=== PATIENT | female | born 1965 | race Caucasian/White ===

== ENCOUNTER 2023-05-12 13:48 | Outpatient (CLI) | payer BC, SELFPAY | END 2023-05-12 13:49 | disposition home or self-care (01) | LOC: NFLDREF 13:49 | PROVIDERS: PCP Family Medicine; Visit Provider Family Medicine | DX: Z00.00 Encounter for general adult medical examination without abnormal findings (principal); I10 Essential (primary) hypertension; E78.5 Hyperlipidemia, unspecified | CPT/HCPCS: 80053 ==

== ENCOUNTER 2023-06-30 11:30 | Outpatient (CLI) | payer BC, SELFPAY | END 2023-06-30 11:31 | disposition home or self-care (01) | PROVIDERS: PCP Family Medicine; Visit Provider Family Medicine | DX: E01.0 Iodine-deficiency related diffuse (endemic) goiter (principal); R00.0 Tachycardia, unspecified; I10 Essential (primary) hypertension; E78.5 Hyperlipidemia, unspecified | CPT/HCPCS: 84439; 84443; 84481 ==

== ENCOUNTER 2023-07-09 10:36 | Outpatient (CLI) | payer BC, SELFPAY ==
--- NOTE | 2023-07-09 11:00 | CRLHL7_ITS ---
For Patients: As a result of the Cures Act, medical imaging exams and procedure reports are released immediately into your electronic medical record. You may view this report before your referring provider. If you have questions, please contact your health care provider. INDICATION: Iodine deficiency RELATED DIFFUSE (ENDEMIC) GOITER COMPARISON: CT chest 05/30/2019 TECHNIQUE: Rm scale and color Doppler images were acquired of the thyroid gland. FINDINGS: The thyroid gland demonstrates diffusely heterogeneous echogenicity and has a lobular outer contour. The right lobe measures 5.0 x 2.4 x 2.6 cm and the left lobe measures 5.4 x 1.9 x 2.0 cm in size. The isthmus measures 1 millimeter. Solid and cystic slightly hypoechoic nodule right thyroid lobe measures 2.1 x 2.4 x 3.2 cm, TR 3. Solid and cystic slightly hypoechoic nodule left thyroid lobe measures 1.1 x 1.5 x 1.8 cm, TR 3. Solid and cystic nodule left thyroid lobe also present measuring 6 x 8 x 9 millimeters, TR 3. The color Doppler images demonstrate normal vascularity. There is no evidence of cervical lymphadenopathy or parathyroid mass. IMPRESSION: 3.2 cm TR 3 right thyroid lobe nodule, FNA recommended. Dictated by Alpesh Cutler MD @ 07/09/2023 11:54:57 AM (Electronically Signed)
== END 2023-07-09 10:37 | disposition home or self-care (01) ==
LOC: US 10:37
PROVIDERS: PCP Family Medicine; Visit Provider Family Medicine
DX: E01.0 Iodine-deficiency related diffuse (endemic) goiter (principal); E04.1 Nontoxic single thyroid nodule
CPT/HCPCS: 76536

== ENCOUNTER 2023-08-03 10:49 | Outpatient (CLI) | payer BC, SELFPAY ==
--- NOTE | 2023-08-03 11:15 | CRLHL7_ITS ---
For Patients: As a result of the Cures Act, medical imaging exams and procedure reports are released immediately into your electronic medical record. You may view this report before your referring provider. If you have questions, please contact your health care provider. INDICATION : Right thyroid nodule. TECHNIQUE : Ultrasound fine needle aspiration of thyroid nodule. Comparison : 07/09/2023 FINDINGS : PROCEDURE: After the informed consent and time-out, multiple fine needle aspirations were obtained from the thyroid nodule. Fine needle performed. 25 gauge needles were used. Lidocaine was used for local anesthesia. The preliminary cytology was adequate for interpretation. Real-time imaging was used for guidance and needle placement. Post imaging ultrasound demonstrates no immediate complication. IMPRESSION : Successful fine needle aspiration of right thyroid nodule. Dictated by Alpesh Cutler MD @ 08/03/2023 12:19:09 PM (Electronically Signed)
== END 2023-08-03 10:50 | disposition home or self-care (01) ==
LOC: US 10:50
PROVIDERS: PCP Family Medicine; Visit Provider Family Medicine
DX: E04.1 Nontoxic single thyroid nodule (principal); E05.90 Thyrotoxicosis, unspecified without thyrotoxic crisis or storm
CPT/HCPCS: 10005; 88173

== ENCOUNTER 2023-08-13 13:34 | Outpatient (CLI) | payer BC, SELFPAY ==
--- NOTE | 2023-08-13 14:00 | CRLHL7_ITS ---
For Patients: As a result of the Century Cures Act, medical imaging exams and procedure reports are released immediately into your electronic medical record. You may view this report before your referring provider. If you have questions, please contact your health care provider. INDICATION: Nontoxic single thyroid nodule. TECHNIQUE: 227 microcuries Iodine 123 administered orally on August 12, 2023. Uptake and scan performed August 13, 2023. FINDINGS: Symmetric uptake within both thyroid lobes. No hot or cold thyroid lobe nodules. 24 hour thyroid uptake is elevated at 62.5 percent. IMPRESSION: 1. Symmetric uptake within both thyroid lobes. No hot or cold thyroid lobe nodules. 2. Elevated 24 hour thyroid uptake of 62.5 percent. Dictated by Dakota Lindsey MD @ 08/13/2023 5:19:28 PM (Electronically Signed)
== END 2023-08-13 13:35 | disposition home or self-care (01) ==
LOC: NM 13:35
PROVIDERS: PCP Family Medicine; Visit Provider Family Medicine
DX: E04.1 Nontoxic single thyroid nodule (principal); E05.90 Thyrotoxicosis, unspecified without thyrotoxic crisis or storm
CPT/HCPCS: 78014; A9509

== ENCOUNTER 2023-10-01 07:21 | Outpatient (CLI) | payer BC, SELFPAY ==
--- NOTE | 2023-10-01 07:15 | CRLHL7_ITS ---
For Patients: As a result of the Century Cures Act, medical imaging exams and procedure reports are released immediately into your electronic medical record. You may view this report before your referring provider. If you have questions, please contact your health care provider. INDICATION: spider nevus of skin COMPARISON: none TECHNIQUE: Real time pierre scale imaging and color Doppler analysis was performed of the right upper quadrant. FINDINGS: Intrahepatic biliary duct dilation is present. The liver measures 16.2 cm. There is a normal appearance of the hepatic IVC and proximal abdominal aorta. There is no evidence of ascites. The gallbladder is absent. The common bile duct is of normal size and measures 21 mm in diameter at the level of the koffi hepatis. Hypoechoic pancreatic head mass is present measuring 4.7 x 2.3 x 2.1 cm. There is no evidence of a stone or hydronephrosis within the right kidney. The right kidney measures 11.2 cm in length. IMPRESSION: 4.7 cm pancreatic head mass with intrahepatic and extrahepatic biliary duct dilation. Dedicated CT recommended for further evaluation. Dictated by Alpesh Cutler MD @ 10/01/2023 10:14:44 AM (Electronically Signed)
== END 2023-10-01 07:22 | disposition home or self-care (01) ==
LOC: US 07:21
PROVIDERS: PCP Family Medicine; Visit Provider Internal Medicine Endocrinology, Diabetes & Metabolism
DX: I78.1 Nevus, non-neoplastic (principal); K86.9 Disease of pancreas, unspecified
CPT/HCPCS: 76705

== ENCOUNTER 2024-01-12 14:25 | Outpatient (REF) | payer BC, SELFPAY ==
[2024-01-12 15:12] LABS: Alkaline Phosphatase* 137 U/L (40-150)
[2024-01-12 19:08] LABS: Free T4 Free Thyroxine* 0.68 ng/dL (0.70-1.85)
[2024-01-14 15:57] LABS: Thyroglobulin Antibody <0.9 IU/mL (0.0-4.0)
[2024-01-15 03:40] LABS: Free T3 2.5 pg/mL (2.5-4.3)
== END 2024-01-12 14:26 | disposition home or self-care (01) ==
LOC: NPINS 14:25
PROVIDERS: PCP Family Medicine; Visit Provider Internal Medicine Endocrinology, Diabetes & Metabolism
DX: E05.90 Thyrotoxicosis, unspecified without thyrotoxic crisis or storm (principal)
CPT/HCPCS: 84075; 84439; 84481; 86376; 86800

== ENCOUNTER 2024-05-13 07:44 | Outpatient (CLI) | payer OTHER, SELFPAY ==
--- OUTSIDE RECORDS SUMMARY | 2024-05-16 14:27 | XMS_ITS | Clinical Summary ---
Author Organization [facility] Address [place], [place] [address] Care Team Providers Care Tin Cutter Name Role Phone Pcp, No Primary Care Provider Unavailabl e Allergies Active Allergy Reactions Criticality Noted Date Comments Cats (Fur, Dander, Saliva) Respiratory Distress 08/17/2007 Canine Protein Containing Products Respiratory Distress 08/17/2007 Lisinopril Cough 02/11/2010 Mold Extracts Wheezing 02/27/2010 Medications Medication Sig Dispensed Refills Start Date End Date Status albuterol (PROVENTIL) 0.083 % neb solution Inhale 3 mL via a nebulizer every 4 hours if needed (shortness of breath or wheezing). 0 03/14/2019 Active acetaminophen (TYLENOL) 325 mg tablet Take 2 tablets by mouth every 4 hours if needed (for discomfort or fever. Call if temp greater than 101 F (38.3 C).). Max acetaminophen dose: 4000mg in 24 hrs. 0 03/14/2019 Active Melatonin 5 mg tabIndications:Absc ess of lower lobe of right lung with pneumonia (HC) Take 1 tablet by mouth at bedtime. 30 tablet 03/14/2019 Active oxyCODONE (ROXICODONE) 5 mg immediate release tabletIndications:A bscess of lower lobe of right lung with pneumonia (HC) Take 1-3 tablets by mouth every 6 hours as needed for pain. 30 tablet 03/14/2019 Active naproxen (ALEVE) 220 mg tablet Take 2 tablets by mouth every 12 hours if needed for Pain. 0 03/14/2019 Active albuterol HFA 90 mcg/actuation inhalerIndications: Bronchiolitis Inhale 2 Puffs by mouth 4 times daily if needed. 1 Inhaler 1 05/30/2019 Active albuterol-ipratropi um (DUONEB) (2.5-0.5 mg) in 3 mL NEBULIZATION solutionIndications :Bronchiolitis Inhale 3 mL via a nebulizer every 4 hours if needed. 1 box 05/30/2019 Active Active Problems Problem Noted Date Diagnosed Date Abscess of lower lobe of right lung with pneumon ia 03/13/2019 Cavitary lesion of lung 03/10/2019 Thyroid nodule 03/10/2019 HTN (hypertension) 03/10/2019 Asthma 03/10/2019 Seasonal allergies 03/09/2019 Insurance coverage problems 10/12/2018 Tobacco dependence 10/11/2018 Severe persistent asthma with acute exacerbation 10/11/2018 Acute respiratory failure with hypoxia 8 Patellofemoral arthralgia of left knee 4 Lumbosacral radiculopathy at S1 10/06/2013 Pain medication agreement 05/19/2012 Overview: Prescriber: Panfilo Gu MD Secondary Dr. Greyson Rizzo, [place] to fill at same amount/dose/frequency in my absence. Controlled substance agreement: 04/15/12 CLIENT RELATION SPECIALIST query on 04/10/16 was acceptable. Last UDS on 09/10/15 L5-S1 disk herniation with DDD 06/26/2011 Hyperlipidemia 03/22/2010 GERD (gastroesophageal reflux disease) 0 Arteriosclerotic heart disease (ASHD) 02/28/2010 Overview: - 02/27/10 Cor angio: 90% mid LAD; s/p FRANCISCO x 1, EF 60% by LV gram, EDP 26 mmHg HTN (hypertension) 02/27/2010 Asthma 02/27/2010 Obesity, unspecified 02/27/2010 Tobacco abuse, in remission 02/27/2010 Overview: Quit 2years ago. 1PPD x 16yrs S/P cholecystectomy 02/27/2010 Stress 02/27/2010 Overview: dx with cancer Unstable angina 02/27/2010 Resolved Problems Problem Noted Date Diagnosed Date Resolved Date HTN (hypertension) 02/11/2010 1 Immunizations Name Administration Dates Next Due Influenza, IIV3 (Age >=3 years) 07/27/2013,08/06 Influenza, IIV4 10/12/2018,07/25/2014 Pneumococcal Poly,23-Valent (Pneumovax) 10/12/20 18 Tdap 11/23/2010 Family History Medical History Relation Name Comments Cancer-breast Mother Thyroid cancer Sister Graves' disease Son Relation Name Status Comments Mother Sister Son Social History Tobacco Use Types Packs/Day Years Used Date Smoking Tobacco: Every Day Cigarettes Last attempted to quit: 10/26/2001 Smokeless Tobacco: Never Tobacco Cessation:Ready to Q uit: Yes; Counseling Given: Yes Comments:3 cigarettes a day Alcohol Use Standard Drinks/Week Comments Yes 0 (1 standard drink = 0.6 oz pur e alcohol) occ. Sex and Gender Information Value Date Recorded Sex Assigned at Not on file Gender Identity Not on file Sexual Orientation Not on file Obstetrics History Last Filed Vital Signs Vital Sign Reading Time Taken Comments Blood Pressure 154/95 12/15/2020 2:40 PM EYEGLASS CUTTER Pulse 116 12/15/2020 2:40 PM EYEGLASS CUTTER Temperature 37 ??C (98.6 ??F) 12/15/2020 2:40 PM EYEGLASS CUTTER Respiratory Rate 16 12/15/2020 2:40 PM EYEGLASS CUTTER Oxygen Saturation 97% 12/15/2020 2:40 PM EYEGLASS CUTTER Inhaled Oxygen Concentration - - Weight 90.7 kg (200 lb) 12/15/2020 2:40 PM EYEGLASS CUTTER Height 170.2 cm (5' 7) 12/15/2020 2:40 PM EYEGLASS CUTTER Body Mass Index 31.32 12/15/2020 2:40 PM EYEGLASS CUTTER Plan of Treatment Health Maintenance Due Date Last Done Comments Hepatitis C screening for age 18-79 1984 Pap test for age 21-65 1987 Colonoscopy through age 75 2011 Mammogram for age 45-75 2011 Zoster (shingles) series for age 50+ (1 of 2) 2016 Depression screening for age 12+ 09/10/2017 09/10/2016, 09/10/2016 BMI (ht and wt on same day) for age 18+ 12/08/2017 12/08/2016, 06/26/2016, 12/27/2015 Lipids for age 45-75 07/07/2019 07/07/2014, 07/27/2013, 11/04/2012, Additional history exists Tetanus booster 03/12/2021 03/12/2011 (Comp leted outside of [facility]), 11/23/2010 COVID-19 vaccine series ( season) 2023 09/11/2021, 12/20/2020, 11/22/2020 Influenza for age 50-64 06/26/2024 10/12/20 18, 07/25/2014, 07/27/2013, Additional history exists Tdap Completed 11/23/2010 Pneumococcal series for age 6-64 Aged Out 10/12/2018 No longer eligible based on patient's age to complete this topic HIV for age 15-65 Completed 03/09/2019 Goals Goal Patient Goal Type Associated Problems Recent Progress Patient-Stated? Author BLOOD PRESSURE - MAINTAINS BP less than 140/90 Blood Pressure Panfilo Gilbert MD Procedures Procedure Name Priority Date/Time Associated Diagnosis Comments ANTI HIV 1/2 TRINI 03/09/2019 7:57 AM CDT LIPID PANEL W REFLEX MEASURED LDL Routine 07/07/2014 10:36 AM CDT Hyperlipidemia from Last 3 Months or Most Recently Relevant to Health Maintenance Results * HIV 1&2 TODAY (03/09/2019 7:57 AM CDT) Pathologist [facility] HIV-1/HIV-2 ANTIBODY Non-Reacti ve Non-Reacti ve 03/11/2019 6:48 AM CDT [facility] Comment:HIV-1 p24 and HIV-1/ HIV-2 Ab not detected. Blood BLOOD SPECIMEN / Unknown Venipuncture / Unknown 03/09/2019 7:57 AM CDT 03/09/2019 8:02 AM CDT Savannah Lara MD SEND OUTS [facility] [address] [place] [address], [place] * (ABNORMAL) LIPID PANEL W REFLEX MEASURED LDL (07/07/2014 10:36 AM CDT) Pathologist [facility] CHOLESTEROL,TOTAL 170 100 - 199 mg/dL 07/07/2014 11:19 AM CDT [facility] TRIGLYCERIDES 113 <150 mg/dL 07/07/2014 11:19 AM CDT [facility] HDL CHOLESTEROL 35(L) >40 mg/dL 4 11:19 AM CDT [facility] NON-HDL CHOLESTEROL 135 <145 mg/dl 07/07/2014 11:19 AM CDT [facility] CHOL/HDL RATIO 4.86(H) <4.50 07/07/2014 11:19 AM CDT [facility] LDL CHOLESTEROL 112 <=130 mg/dL 07/07/2014 11:19 AM CDT [facility] PATIENT STATUS NON-FASTI NG 07/07/2014 11:19 AM CDT [facility] Blood specimen (specimen) BLOOD SPECIMEN / Unknown Venipuncture / Unknown 07/07/2014 10:36 AM CDT 07/07/2014 10:36 AM CDT Panfilo Gu MD CHEMISTRY [facility] [address] [place] [address], from Last 3 Months or Most Recently Relevant to Health Maintenance Advance Directives * Full Code (Latest Code Status on File) Date Activated Date Inactivated Comments 03/09/2019 4:55 PM 03/14/2019 8:03 PM * DNR Date Activated Date Inactivated Comments 10/11/2018 1:44 PM 10/12/2018 5:54 PM Question Answer Comments Code Status Discussion: Discussed Care Teams Tin Cutter Relationship Specialty Start Date End Date Pcp, No . PCP - General 07/18/17
== END 2024-05-13 07:45 | disposition home or self-care (01) ==
LOC: NFLDREF 05-16 14:26
PROVIDERS: PCP Family Medicine; Referring Provider Family Medicine; Visit Provider Family Medicine
DX: E78.5 Hyperlipidemia, unspecified (principal); I10 Essential (primary) hypertension
CPT/HCPCS: 80053; 80061

== ENCOUNTER 2024-05-26 06:01 | Outpatient (CLI) | payer OTHER, SELFPAY ==
--- OUTSIDE RECORDS SUMMARY | 2024-05-26 06:04 | XMS_ITS | Clinical Summary ---
Author Organization [facility] Address [place], [place] [address] Care Team Providers Care Escalator Attendant Name Role Phone Pcp, No Primary Care [...] in my absence. Controlled substance agreement: 04/15/12 BIT BENDER query on 04/10/16 was acceptable. Last UDS [...] Date Resolved Date HTN (hypertension) 02/11/2010 1 Encounters Date Type Department Care Team Description 05/16/2024 Lab Requisition [facility] [phone] Milo Maloney MD from Last 3 Months Immunizations Name Administration Dates Next Due Influenza, [...] Comments Blood Pressure 154/95 12/15/2020 2:40 PM PURCHASE PRICE ANALYST Pulse 116 12/15/2020 2:40 PM PURCHASE PRICE ANALYST Temperature 37 ??C (98.6 ??F) 12/15/2020 2:40 PM PURCHASE PRICE ANALYST Respiratory Rate 16 12/15/2020 2:40 PM PURCHASE PRICE ANALYST Oxygen Saturation 97% 12/15/2020 2:40 PM PURCHASE PRICE ANALYST Inhaled Oxygen Concentration - - Weight 90.7 kg (200 lb) 12/15/2020 2:40 PM PURCHASE PRICE ANALYST Height 170.2 cm (5' 7) 12/15/2020 2:40 PM PURCHASE PRICE ANALYST Body Mass Index 31.32 12/15/2020 2:40 PM PURCHASE PRICE ANALYST Plan of Treatment Health Maintenance Due Date Last Done Comments Hepatitis C screening for age 18-79 1984 Colonoscopy through age 75 2011 Mammogram for [...] outside of [facility]), 11/23/2010 COVID-19 vaccine series (2022- season) 2023 09/11/2021, 12/20/2020, 11/22/2020 Influenza for age 50-64 06/26/2024 10/12/20 18, 07/25/2014, 07/27/2013, Additional history exists Pap test for age 21-65 05/16/2027 05/16/2024, 2023 Tdap Completed 11/23/2010 Pneumococcal series for age 6-64 Aged Out 10/12/2018 No longer eligible based on patient's age to complete this topic HIV for age 15-65 Completed 03/09/2019 Goals Goal Patient Goal Type Associated Problems Recent Progress Patient-Stated? Author BLOOD PRESSURE - MAINTAINS BP less than 140/90 Blood Pressure No Panfilo Gu MD Procedures Procedure Name Priority Date/Time Associated Diagnosis Comments LAB TRACKING EVENT Routine 05/16/2024 8: [address] [employer]IO INSTALLER THIN PREP PAP SCREEN IMAGED Routine 05/16/2024 8:45 AM CDT HPV THIN PREP Routine 05/16/2024 8:45 AM CDT ANTI HIV 1/2 TRINI 03/09/2019 7:57 AM CDT LIPID PANEL W REFLEX MEASURED LDL Routine 07/07/2014 10:36 AM CDT Hyperlipidemia from Last 3 Months or Most Recently Relevant to Health Maintenance Results * LAB TRACKING EVENT (05/16/2024 8:45 AM CDT) Other (Other) Client Collect / Unknown 05/16/2024 8:45 AM CDT 05/16/2024 3:38 PM CDT Milo Maloney MD LAB BILL ONLY [facility] [address] [place] [address], * TWO WAY RADIO INSTALLER THIN PREP PAP SCREEN IMAGED (05/16/2024 8:45 AM CDT) Case Report Gynecologic Cytology Report ? Case: [id number] ? Authorizing Provider: ??Milo Maloney MD ?Collected: ? 05/16/2024 0845 ? Ordering Location: ? [facility] ?Received: ?05/17/2024 1045 ? First Screen: ?Abi Tipton ? Specimen: ?TWO WAY RADIO INSTALLER ThinPrep Vial Screening, Cervical ? 05/24/2024 12:59 PM CDT [facility] INTERPRETATION/ RESULT NEGATIVE FOR INTRAEPITHELIAL LESION OR MALIGNANCY (NIL) (none) 05/24/2024 12:59 PM CDT [facility] IMEN ADEQUACY Satisfactory for evaluation No endocervical component seen 05/24/2024 12:59 PM CDT [facility] HPV REQUEST HPV and PAP 05/24/2024 12:59 PM CDT [facility] Date of LMP 05/24/2024 12:59 PM CDT [facility] Comment:UNKNOWN Last Pap Date 05/24/2024 12:59 PM CDT [facility] Comment:UNKNOWN Last Pap Result 12:59 PM CDT [facility] Comment:Unknown Abnormal Pap or Creola Bx in last 5 years No 05/24/2024 12:59 PM CDT [facility] Creola Bx Done Today No 05/24/2024 12:59 PM CDT [facility] Additional Information 05/24/2024 12:59 PM CDT [facility] Comment: Interpreted at [facility] - [address] [place] [id number] Automated Review Successful 05/24/2024 12:59 PM CDT [facility] Comment:Specimen processed s uccessfully by automated rn discharge device, ThinPrep Imaging System, [facility] [employer] [employer] ANCILLARY TESTING TWO WAY RADIO INSTALLER HPV Ordered, Please see separate report 05/24/2024 12:59 PM CDT [facility] Note The pap test is a screening technique, not a diagnostic procedure. It is used primarily to screen for squamous cancers and precursor lesions. Published studies have shown that it is subject to both false negative and false positive results. The pap test should not be used as the sole means to diagnose or exclude pre-malignant and malignant lesions. 05/24/2024 12:59 PM CDT [facility] [employer] [facility] Other (Cervical) 05/16/2024 8:45 AM CDT 05/17/2024 10:45 AM CDT Milo Maloney MD PATHOLOGY/CYTOLOGY [facility] [address] [place] [address], * HPV HIGH RISK (05/16/2024 8:45 AM CDT) TYPE 16 Negative Negative 05/20/2024 11:06 AM CDT [facility] [employer] [facility] TYPE 18 Negative Negative 05/20/2024 11:06 AM CDT [facility] OTHER HIGH RISK TYPES Negative Negative 05/20/2024 11:06 AM CDT [facility] Other (Cervical) 05/16/2024 8:45 AM CDT 05/17/2024 10:45 AM CDT Narrative [facility] - 05/20/2024 11:06 AM CDT HPV types 16, 18, 31, 33, 35, 39, 45, 51, 52, 56, 58, 59, 66 and 68 DNA were undetectable or below the pre-set threshold. Methodology: Ruma Kaitlin 4800 HPV Test Milo Maloney MD MICROBIOLOGY [facility] [address] [place] [address], * HIV 1&2 TODAY (03/09/2019 7:57 AM CDT) HIV-1/HIV-2 ANTIBODY Non-Reacti ve Non-Reacti ve 03/11/2019 6:48 AM CDT [facility] Comment:HIV-1 p24 and HIV-1/ HIV-2 Ab not detected. Blood BLOOD SPECIMEN / Unknown Venipuncture / Unknown 03/09/2019 7:57 AM CDT 03/09/2019 8:02 AM CDT Savannah Lara MD SEND OUTS [facility] [address] [place] [address], [place] * (ABNORMAL) LIPID PANEL W REFLEX MEASURED LDL (07/07/2014 10:36 AM CDT) CHOLESTEROL,TOTAL 170 100 - 199 mg/dL 07/07/2014 11:19 AM CDT [facility] TRIGLYCERIDES 113 <150 mg/dL 07/07/2014 11:19 AM CDT [facility] HDL CHOLESTEROL 35(L) >40 mg/dL 4 11:19 AM CDT [facility] NON-HDL CHOLESTEROL 135 <145 mg/dl 07/07/2014 11:19 AM CDT [facility] CHOL/HDL RATIO 4.86(H) <4.50 07/07/2014 11:19 AM CDT [facility] LDL CHOLESTEROL 112 <=130 mg/dL 07/07/2014 11:19 AM CDT [facility] PATIENT STATUS NON-FASTI NG 07/07/2014 11:19 AM CDT [facility] Blood specimen (specimen) BLOOD SPECIMEN / Unknown Venipuncture / Unknown 07/07/2014 10:36 AM CDT 07/07/2014 10:36 AM CDT Panfilo Gu MD CHEMISTRY [address] [address], from Last 3 Months or Most Recently Relevant to Health Maintenance Advance Directives * Full Code (Latest Code Status on File) Date Activated Date Inactivated Comments 03/09/2019 4:55 PM 03/14/2019 8:03 PM * DNR Date Activated Date Inactivated Comments 10/11/2018 1:44 PM 10/12/2018 5:54 PM Question Answer Comments Code Status Discussion: Discussed Care Teams Escalator Attendant Relationship Specialty Start Date End Date Pcp, No . PCP - General 07/18/17
== END 2024-05-26 06:02 | disposition home or self-care (01) ==
PROVIDERS: PCP Family Medicine; Visit Provider Surgery
DX: Z53.8 Procedure and treatment not carried out for other reasons (principal)

== ENCOUNTER 2024-06-24 12:50 | Outpatient (CLI) | payer OTHER, SELFPAY ==
--- OUTSIDE RECORDS SUMMARY | 2024-06-24 12:53 | XMS_ITS | Clinical Summary ---
Author Organization [employer] [facility] [employer] Address [place], [place] [address] Care Team Providers Care Cafe Or Restaurant Manager Name Role Phone Pcp, No Primary Care [...] in my absence. Controlled substance agreement: 04/15/12 MEDICAID BILLER query on 04/10/16 was acceptable. Last UDS [...] Department Care Team Description 05/16/2024 Lab Requisition [facility] [phone] Milo Maloney MD from Last 3 Months [...] Comments Blood Pressure 154/95 12/15/2020 2:40 PM PUBLIC HEALTH VETERINARIAN Pulse 116 12/15/2020 2:40 PM PUBLIC HEALTH VETERINARIAN Temperature 37 ??C (98.6 ??F) 12/15/2020 2:40 PM PUBLIC HEALTH VETERINARIAN Respiratory Rate 16 12/15/2020 2:40 PM PUBLIC HEALTH VETERINARIAN Oxygen Saturation 97% 12/15/2020 2:40 PM PUBLIC HEALTH VETERINARIAN Inhaled Oxygen Concentration - - Weight 90.7 kg (200 lb) 12/15/2020 2:40 PM PUBLIC HEALTH VETERINARIAN Height 170.2 cm (5' 7) 12/15/2020 2:40 PM PUBLIC HEALTH VETERINARIAN Body Mass Index 31.32 12/15/2020 2:40 PM PUBLIC HEALTH VETERINARIAN Plan of Treatment Health Maintenance Due Date [...] EVENT Routine 05/16/2024 8: 45 AM CDT RUBBER AND POUNDER THIN PREP PAP SCREEN IMAGED Routine 05/16/2024 [...] [facility] [address] [place] [address], * RUBBER AND POUNDER THIN PREP PAP SCREEN IMAGED (05/16/2024 8:45 AM CDT) Case Report Gynecologic Cytology Report ? Case: [id number] ? Authorizing Provider: ??Milo Maloney MD ?Collected: ? 05/16/2024 0845 ? Ordering Location: ? [facility] ?Received: ?05/17/2024 1045 ? First Screen: ?Abi Tipton ? Specimen: ?RUBBER AND POUNDER ThinPrep Vial Screening, Cervical ? 05/24/2024 12:59 PM CDT [facility]-C ENTRAL LABORATORY INTERPRETATION/ RESULT NEGATIVE FOR INTRAEPITHELIAL LESION OR MALIGNANCY (NIL) (none) 05/24/2024 12:59 PM CDT [facility]-C ENTRAL LABORATORY IMEN ADEQUACY Satisfactory for evaluation No endocervical component seen 05/24/2024 12:59 PM CDT [facility] ENTRAL LABORATORY HPV REQUEST HPV and PAP 05/24/2024 12:59 PM CDT [facility]-C ENTRAL LABORATORY Date of LMP 05/24/2024 12:59 PM CDT [facility] Julep [facility] ENTRAL LABORATORY Comment:UNKNOWN Last Pap Date 05/24/2024 12:59 PM CDT [facility] EN[facility] LABOR[facility] Comment:UNKNOWN Last Pap Result 12:59 PM CDT [facility] ENTR[facility] LABORATORY Comment:Unknown Abnormal Pap or [place] Bx in last 5 years No 05/24/2024 12:59 PM CDT [facility] LABORAT[facility] [place] Bx Done Today No 05/24/2024 12:59 PM CDT [facility] ENTRTN LABORATORY Additional Information 05/24/2024 12:59 PM CDT [facility] ENTRAL LABORATORY Comment: Interpreted at [facility] - [address] [place] [id number] Automated Review Successful 05/24/2024 12:59 PM CDT [facility] ENTRTN LABORATORY Comment:Specimen processed s uccessfully by automated field tax auditor device, ThinPrep Imaging System, [employer] ANCILLARY TESTING RUBBER AND POUNDER HPV Ordered, Please see separate report 05/24/2024 12:59 PM CDT [facility]OR[facility] Note The pap test is a [...] and malignant lesions. 05/24/2024 12:59 PM CDT [facility] Julep [facility] LABORATORY Other (Cervical) 05/16/2024 8:45 AM CDT 05/17/2024 10:45 AM CDT Milo Maloney MD PATHOLOGY/CYTOLOGY [facility] [address] [place] [address], * HPV HIGH RISK (05/16/2024 8:45 AM CDT) TYPE 16 Negative Negative 05/20/2024 11:06 AM CDT [facility] TYPE 18 Negative Negative 05/20/2024 11:06 AM CDT [facility] TRAL LABORATORY OTHER HIGH RISK TYPES Negative Negative 05/20/2024 11:06 AM CDT [facility] TRAL LABORATORY Other (Cervical) 05/16/2024 8:45 AM CDT 05/17/2024 10:45 AM CDT Narrative [facility] LABORATORY - 05/20/2024 11:06 AM CDT HPV types 16, 18, 31, 33, 35, 39, 45, 51, 52, 56, 58, 59, 66 and 68 DNA were undetectable or below the pre-set threshold. Methodology: Ruma Kaitlin 4800 HPV Test Milo Maloney MD MICROBIOLOGY [facility] [address] [place] [address], * HIV 1&2 TODAY (03/09/2019 7:57 AM CDT) HIV-1/HIV-2 ANTIBODY Non-Reacti ve Non-Reacti ve 03/11/2019 6:48 AM CDT [facility] TRAL LABORATORY Comment:HIV-1 p24 and HIV-1/ HIV-2 Ab not detected. Blood BLOOD SPECIMEN / Unknown Venipuncture / Unknown 03/09/2019 7:57 AM CDT 03/09/2019 8:02 AM CDT Savannah Lara MD SEND OUTS [facility] [address] [place] [address], [place] * (ABNORMAL) LIPID PANEL W REFLEX MEASURED LDL (07/07/2014 10:36 AM CDT) CHOLESTEROL,TOTAL 170 100 - 199 mg/dL 07/07/2014 11:19 AM CDT [facility] TRIGLYCERIDES 113 <150 mg/dL 07/07/2014 11:19 AM CDT [facility] HDL CHOLESTEROL 35(L) >40 mg/dL 4 11:19 AM CDT [facility] NON-HDL CHOLESTEROL 135 <145 mg/dl 07/07/2014 11:19 AM CDT [facility] CHOL/HDL RATIO 4.86(H) <4.50 07/07/2014 11:19 AM CDT [facility] LDL CHOLESTEROL 112 <=130 mg/dL 07/07/2014 11:19 AM CDT [facility] PATIENT STATUS NON-FASTI NG 07/07/2014 11:19 AM CDT [facility] Blood specimen (specimen) BLOOD SPECIMEN / Unknown Venipuncture / Unknown 07/07/2014 10:36 AM CDT 07/07/2014 10:36 AM CDT Panfilo Gu MD CHEMISTRY [address] [address], from Last 3 Months or Most Recently Relevant to Health Maintenance Advance Directives * Full Code (Latest Code Status on File) Date Activated Date Inactivated Comments 03/09/2019 4:55 PM 03/14/2019 8:03 PM * DNR Date Activated Date Inactivated Comments 10/11/2018 1:44 PM 10/12/2018 5:54 PM Question Answer Comments Code Status Discussion: Discussed Care Teams Cafe Or Restaurant Manager Relationship Specialty Start Date End Date Pcp, No . PCP - General 07/18/17
[2024-06-24 13:40] LABS: Alkaline Phosphatase* 96 U/L (40-150)
[2024-06-24 13:57] LABS: Free T4 Free Thyroxine* 2.19 ng/dL (0.70-1.85)
[2024-06-24 14:15] LABS: Thyroid Stimulating Hormone* < 0.015 uIU/mL (0.270-4.20)
[2024-06-26 05:53] LABS: Free T3 5.6 pg/mL (2.5-4.3)
== END 2024-06-24 12:51 | disposition home or self-care (01) ==
LOC: LAB 12:51
PROVIDERS: PCP Family Medicine; Visit Provider Internal Medicine Endocrinology, Diabetes & Metabolism
DX: E06.3 Autoimmune thyroiditis (principal); E05.00 Thyrotoxicosis with diffuse goiter without thyrotoxic crisis or storm; E05.90 Thyrotoxicosis, unspecified without thyrotoxic crisis or storm
CPT/HCPCS: 36415; 84075; 84439; 84443; 84481

== ENCOUNTER 2024-07-21 08:20 | Outpatient (CLI) | payer OTHER, SELFPAY ==
--- NOTE | 2024-07-21 08:15 | CRLHL7_ITS ---
For Patients: As a result of the Century Cures Act, medical imaging exams and procedure reports are released immediately into your electronic medical record. You may view this report before your referring provider. If you have questions, please contact your health care provider. BILATERAL DIGITAL SCREENING MAMMOGRAM WITH COMPUTER-AIDED DETECTION AND TOMOSYNTHESIS CLINICAL HISTORY: Routine screening exam. COMPARISON: None. TECHNIQUE: Digital mammogram in CC and MLO projections including computer-aided detection (CAD). Tomosynthesis was used in this interpretation. BREAST COMPOSITION: There are scattered areas of fibroglandular density. FINDINGS: RIGHT Breast: Architectural distortion upper outer quadrant with associated microcalcifications 5 cm from the nipple. LEFT Breast: No suspicious findings. IMPRESSION: RIGHT breast asymmetry/mass. RECOMMENDATIONS: Additional mammographic views of the RIGHT breast including 3D spot compression CC/MLO. RIGHT breast ultrasound may also be required. BI-RADS Category 0: Incomplete: Need Additional Imaging Evaluation and/or Prior Mammograms for Comparison [facility] will contact the patient for follow-up. A lay language report of this examination will be provided to the patient. Dictated by Alpesh Cutler MD @ 07/29/2024 9:30:45 AM jj/Dictated by: Alpesh Cutler MD @ 07/29/2024 9:30:00 AM (Electronically Signed)
--- OUTSIDE RECORDS SUMMARY | 2024-07-21 08:23 | XMS_ITS | Clinical Summary ---
Author Organization [employer] [facility] [employer] Address [place], [place] [address] Care Team Providers Care Finishing Machine Operator Name Role Phone Pcp, No Primary Care [...] at S1 10/06/2013 Pain medication agreement 05/19/2012 Overview (01/08/2017): Prescriber: Panfilo Gu MD Secondary Sherwin Sharma to fill at same amount/dose/frequency in my absence. Controlled substance agreement: 04/15/12 INPATIENT CODER query on 04/10/16 was acceptable. 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 1PPD x 16yrs S/P cholecystectomy 02/27/2010 Stress 02/27/2010 Overview (02/27/2010): dx with cancer Unstable angina 02/27/2010 Resolved Problems Problem Noted Date Diagnosed Date Resolved Date HTN (hypertension) 02/11/2010 1 Encounters Date Type Department Care Team Description 05/16/2024 Lab Requisition [facility] [phone] Milo Maloney MD from Last 3 Months [...] Comments Blood Pressure 154/95 12/15/2020 2:40 PM OIL AND GAS PRINCIPAL Pulse 116 12/15/2020 2:40 PM OIL AND GAS PRINCIPAL Temperature 37 ??C (98.6 ??F) 12/15/2020 2:40 PM OIL AND GAS PRINCIPAL Respiratory Rate 16 12/15/2020 2:40 PM OIL AND GAS PRINCIPAL Oxygen Saturation 97% 12/15/2020 2:40 PM OIL AND GAS PRINCIPAL Inhaled Oxygen Concentration - - Weight 90.7 kg (200 lb) 12/15/2020 2:40 PM OIL AND GAS PRINCIPAL Height 170.2 cm (5' 7) 12/15/2020 2:40 PM OIL AND GAS PRINCIPAL Body Mass Index 31.32 12/15/2020 2:40 PM OIL AND GAS PRINCIPAL Plan of Treatment Health Maintenance Due Date [...] [employer]), 11/23/2010 COVID-19 vaccine series ( season) 2024 09/11/2021, 12/20/2020, 11/22/2020 Influenza for age 50-64 [...] EVENT Routine 05/16/2024 8: 45 AM CDT COMMUNICATIONS ELECTRICIAN SUPERVISOR THIN PREP PAP SCREEN IMAGED Routine 05/16/2024 8:45 AM CDT HPV HIGH RISK Routine 05/16/2024 8:45 AM CDT ANTI HIV [...] CDT Milo Maloney MD LAB BILL ONLY [facility] LABORATORY [address] [place] [address], * COMMUNICATIONS ELECTRICIAN SUPERVISOR THIN PREP PAP SCREEN IMAGED (05/16/2024 8:45 AM CDT) Case Report Gynecologic Cytology Report ? Case: [id number] ? Authorizing Provider: ??Milo Maloney MD ?Collected: ? 05/16/2024 0845 ? Ordering Location: ? [facility] ?Received: ?05/17/2024 1045 ? First Screen: ?Abi Tipton ? Specimen: ?COMMUNICATIONS ELECTRICIAN SUPERVISOR ThinPrep Vial Screening, Cervical ? 05/24/2024 12:59 PM CDT [facility] LABORATORY-C ENTRAL LABORATORY INTERPRETATION/ RESULT NEGATIVE FOR INTRAEPITHELIAL LESION OR MALIGNANCY (NIL) (none) 05/24/2024 12:59 PM CDT [facility] IMEN ADEQUACY Satisfactory for evaluation No endocervical component seen 05/24/2024 12:59 PM CDT [facility]-C ENTRAL LABORATORY HPV REQUEST HPV and PAP 05/24/2024 12:59 PM CDT [facility] EN[facility] LABORATORY Date of LMP 05/24/2024 12:59 PM CDT [facility] ENTROR LABORATORY Comment:UNKNOWN Last Pap Date 05/24/2024 12:59 PM CDT [facility] EN[facility] LABORATORY Comment:UNKNOWN Last Pap Result 12:59 PM CDT [facility] LABORATORY Comment:Unknown Abnormal Pap or [place] Bx in last 5 years No 05/24/2024 12:59 PM CDT [facility] [place] Bx Done Today No 05/24/2024 12:59 PM CDT [facility] Additional Information 05/24/2024 12:59 PM CDT [facility] EN[facility]OR LABORATORY Comment: Interpreted at [facility] - [address] [place] [id number] Automated Review Successful 05/24/2024 12:59 PM CDT [facility] Comment:Specimen processed s uccessfully by automated wound care nurse device, ThinPrep Imaging System, [employer] ANCILLARY TESTING COMMUNICATIONS ELECTRICIAN SUPERVISOR HPV Ordered, Please see separate report 05/24/2024 12:59 PM CDT [facility] Note The pap test is a [...] and malignant lesions. 05/24/2024 12:59 PM CDT [facility] Other (Cervical) 05/16/2024 8:45 AM CDT 05/17/2024 10:45 AM CDT Milo Maloney MD PATHOLOGY/CYTOLOGY [facility] [address] [place] [address], * HPV HIGH RISK (05/16/2024 8:45 AM CDT) TYPE 16 Negative Negative 05/20/2024 11:06 AM CDT [facility] TRAL LABORATORY TYPE 18 Negative Negative 05/20/2024 11:06 AM CDT [facility] TRAL LABORATORY OTHER HIGH RISK TYPES Negative Negative 05/20/2024 11:06 AM CDT [facility] Other (Cervical) 05/16/2024 8:45 AM CDT 05/17/2024 10:45 AM CDT Narrative [facility]ORY - 05/20/2024 11:06 AM CDT HPV types 16, 18, 31, 33, 35, 39, 45, 51, 52, 56, 58, 59, 66 and 68 DNA were undetectable or below the pre-set threshold. Methodology: Ruma Kaitlin 4800 HPV Test Milo Maloney MD MICROBIOLOGY [facility] [address] [place] [address], * HIV 1&2 TODAY (03/09/2019 7:57 AM CDT) HIV-1/HIV-2 ANTIBODY Non-Reacti ve Non-Reacti ve 03/11/2019 6:48 AM CDT [facility] Comment:HIV-1 p24 and HIV-1/ HIV-2 Ab not detected. Blood BLOOD SPECIMEN / Unknown Venipuncture / Unknown 03/09/2019 7:57 AM CDT 03/09/2019 8:02 AM CDT Savannah Lara MD SEND OUTS [facility] [address] [place] [address], * (ABNORMAL) LIPID PANEL W REFLEX MEASURED LDL (07/07/2014 10:36 AM CDT) CHOLESTEROL,TOTAL 170 100 - 199 mg/dL 07/07/2014 11:19 AM CDT [facility] TRIGLYCERIDES 113 <150 mg/dL 07/07/2014 11:19 AM CDT [facility] HDL CHOLESTEROL 35(L) >40 mg/dL 4 11:19 AM CDT [facility] NON-HDL CHOLESTEROL 135 <145 mg/dl 07/07/2014 11:19 AM CDT [facility] CHOL/HDL RATIO 4.86(H) <4.50 07/07/2014 11:19 AM CDT [facility] LDL CHOLESTEROL 112 <=130 mg/dL 07/07/2014 11:19 AM CDT [facility] PATIENT STATUS NON-FASTI NG 07/07/2014 11:19 AM CDT [facility] Blood specimen (specimen) BLOOD SPECIMEN / Unknown Venipuncture / Unknown 07/07/2014 10:36 AM CDT 07/07/2014 10:36 AM CDT Panfilo Gu MD CHEMISTRY [address] [address], from Last 3 Months or Most Recently Relevant to Health Maintenance Advance Directives * Full Code (Latest Code Status on File) Date Activated Date Inactivated Comments 03/09/2019 4:55 PM 03/14/2019 8:03 PM * DNR Date Activated Date Inactivated Comments 10/11/2018 1:44 PM 10/12/2018 5:54 PM Question Answer Comments Code Status Discussion: Discussed Care Teams Finishing Machine Operator Relationship Specialty Start Date End Date Pcp, No . PCP - General 07/18/17
== END 2024-07-21 08:21 | disposition home or self-care (01) ==
LOC: MAMMO 08:21
PROVIDERS: PCP Family Medicine; Visit Provider Family Medicine
DX: Z12.31 Encounter for screening mammogram for malignant neoplasm of breast (principal); N63.10 Unspecified lump in the right breast, unspecified quadrant
CPT/HCPCS: 77063; 77067

== ENCOUNTER 2024-08-05 11:38 | Outpatient (CLI) | payer OTHER, SELFPAY ==
--- NOTE | 2024-08-05 11:45 | CRLHL7_ITS ---
For Patients: As a result of the Cures Act, medical imaging exams and procedure reports are released immediately into your electronic medical record. You may view this report before your referring provider. If you have questions, please contact your health care provider. DIGITAL DIAGNOSTIC RIGHT MAMMOGRAM USING TOMOSYNTHESIS AND COMPUTER-AIDED DETECTION RIGHT BREAST ULTRASOUND CLINICAL HISTORY: RIGHT breast mass/asymmetry. COMPARISON: 07/21/2024. TECHNIQUE: Digital RIGHT mammogram in two projections. Tomosynthesis and CAD were used in this interpretation. Real-time ultrasound imaging of RIGHT breast with imaging documentation. Scanning was performed by both the technologist and the radiologist. BREAST COMPOSITION: There are scattered areas of fibroglandular density. FINDINGS: 3D spot compression CC/MLO RIGHT breast mammogram images submitted. Persistent area of architectural distortion with microcalcifications in the upper outer quadrant. Targeted RIGHT breast ultrasound performed. At 11 o`clock 7 cm from the nipple there is an irregular mass with microcalcifications measuring 9 x 6 x 13 millimeters. Mildly prominent RIGHT axillary lymph nodes are present with the cortex measuring up to 4 millimeters. IMPRESSION: Suspicious mass RIGHT breast 11 o`clock 7 cm from the nipple measuring 13 millimeters. Indeterminate RIGHT axillary lymph node with cortex measuring 4.2 millimeters. RECOMMENDATIONS: Ultrasound-guided core needle biopsy of both lesions. Results and recommendations discussed with the patient. BI-RADS Category 4: Suspicious A lay language report of this examination will be provided to the patient. Dictated by Alpesh Cutler MD @ 08/05/2024 12:45:09 PM yue/Dictated by: Alpesh Cutler MD @ 08/05/2024 12:45:00 PM (Electronically Signed)
--- OUTSIDE RECORDS SUMMARY | 2024-08-05 11:47 | XMS_ITS | Clinical Summary ---
Author Organization [employer] [facility] [employer] [facility] Address [place], [place] [address] Care Team Providers Care Rehabilitation Aide Name Role Phone Pcp, No Primary Care [...] in my absence. Controlled substance agreement: 04/15/12 HIGH TENSION TESTER query on 04/10/16 was acceptable. Last UDS [...] Lab Requisition [facility] [phone] Milo Maloney MD from Last 3 Months [...] Comments Blood Pressure 154/95 12/15/2020 2:40 PM SLAT BASKET MAKER HELPER MACHINE Pulse 116 12/15/2020 2:40 PM SLAT BASKET MAKER HELPER MACHINE Temperature 37 ??C (98.6 ??F) 12/15/2020 2:40 PM SLAT BASKET MAKER HELPER MACHINE Respiratory Rate 16 12/15/2020 2:40 PM SLAT BASKET MAKER HELPER MACHINE Oxygen Saturation 97% 12/15/2020 2:40 PM SLAT BASKET MAKER HELPER MACHINE Inhaled Oxygen Concentration - - Weight 90.7 kg (200 lb) 12/15/2020 2:40 PM SLAT BASKET MAKER HELPER MACHINE Height 170.2 cm (5' 7) 12/15/2020 2:40 PM SLAT BASKET MAKER HELPER MACHINE Body Mass Index 31.32 12/15/2020 2:40 PM SLAT BASKET MAKER HELPER MACHINE Plan of Treatment Health Maintenance Due Date [...] EVENT Routine 05/16/2024 8: 45 AM CDT SURGICAL AIDE THIN PREP PAP SCREEN IMAGED Routine 05/16/2024 [...] CDT Milo Maloney MD LAB BILL ONLY [facility] LABORATORY-CENTRAL LABORATORY [address] [place] [address], * SURGICAL AIDE THIN PREP PAP SCREEN IMAGED (05/16/2024 8:45 AM CDT) Case Report Gynecologic Cytology Report ? Case: [id number] ? Authorizing Provider: ??Milo Maloney MD ?Collected: ? 05/16/2024 0845 ? Ordering Location: ? [facility] ?Received: ?05/17/2024 1045 ? First Screen: ?Abi Tipton ? Specimen: ?SURGICAL AIDE ThinPrep Vial Screening, Cervical ? 05/24/2024 12:59 PM CDT [email or web address] LABORATORY-C ENTRAL LABORATORY INTERPRETATION/ RESULT NEGATIVE FOR INTRAEPITHELIAL LESION OR MALIGNANCY (NIL) (none) 05/24/2024 12:59 PM CDT [facility] IMEN ADEQUACY Satisfactory for evaluation No endocervical component seen 05/24/2024 12:59 PM CDT [email or web address] LABORATORY-C ENTRAL LABORATORY HPV REQUEST HPV and PAP 05/24/2024 12:59 PM CDT [facility]IL LABORATORY Date of LMP 05/24/2024 12:59 PM CDT [facility] Comment:UNKNOWN Last Pap Date 05/24/2024 12:59 PM CDT [facility] Comment:UNKNOWN Last Pap Result 12:59 PM CDT [facility] Comment:Unknown Abnormal Pap or [place] Bx in last 5 years No 05/24/2024 12:59 PM CDT [facility]OR[facility] [place] Bx Done Today No 05/24/2024 12:59 PM CDT [facility] Additional Information 05/24/2024 12:59 PM CDT [facility] Comment: Interpreted at [facility] - [address] [place] [id number] Automated Review Successful 05/24/2024 12:59 PM CDT [facility] Comment:Specimen processed s uccessfully by automated community education coordinator device, ThinPrep Imaging System, [employer] ANCILLARY TESTING SURGICAL AIDE HPV Ordered, Please see separate report 05/24/2024 12:59 PM CDT [facility] Note The pap test is [...] and malignant lesions. 05/24/2024 12:59 PM CDT [facility] Other (Cervical) 05/16/2024 8:45 AM CDT 05/17/2024 10:45 AM CDT Milo Maloney MD PATHOLOGY/CYTOLOGY [facility] [address] [place] [address], * HPV HIGH RISK (05/16/2024 8:45 AM CDT) TYPE 16 Negative Negative 05/20/2024 11:06 AM CDT [facility] TRAL LABORATORY TYPE 18 Negative Negative 05/20/2024 11:06 AM CDT [facility] TRAL LABORATORY OTHER HIGH RISK TYPES Negative Negative 05/20/2024 11:06 AM CDT [facility] LABOR[facility] Other (Cervical) 05/16/2024 8:45 AM CDT 05/17/2024 10:45 AM CDT Narrative [facility] LABOR[facility] - 05/20/2024 11:06 AM CDT HPV types 16, 18, 31, 33, 35, 39, 45, 51, 52, 56, 58, 59, 66 and 68 DNA were undetectable or below the pre-set threshold. Methodology: Ruma Kaitlin 4800 HPV Test Milo Maloney MD MICROBIOLOGY [facility] [address] [place] [address], * HIV 1&2 TODAY (03/09/2019 7:57 AM CDT) HIV-1/HIV-2 ANTIBODY Non-Reacti ve Non-Reacti ve 03/11/2019 6:48 AM CDT [facility] Comment:HIV-1 p24 and HIV-1/ HIV-2 Ab not detected. Blood BLOOD SPECIMEN / Unknown Venipuncture / Unknown 03/09/2019 7:57 AM CDT 03/09/2019 8:02 AM CDT Savannah Lara MD SEND OUTS [facility] [address] [place] [address], * (ABNORMAL) LIPID PANEL W REFLEX MEASURED LDL (07/07/2014 10:36 AM CDT) CHOLESTEROL,TOTAL 170 100 - 199 mg/dL 07/07/2014 11:19 AM CDT [facility] TRIGLYCERIDES 113 <150 mg/dL 07/07/2014 11:19 AM CDT [facility] HDL CHOLESTEROL 35(L) >40 mg/dL 4 11:19 AM CDT [facility] NON-HDL CHOLESTEROL 135 <145 mg/dl 07/07/2014 11:19 AM CDT [facility] CHOL/HDL RATIO 4.86(H) <4.50 07/07/2014 11:19 AM CDT [facility] LDL CHOLESTEROL 112 <=130 mg/dL 07/07/2014 11:19 AM CDT [facility] PATIENT STATUS NON-FASTI NG 07/07/2014 11:19 AM CDT [facility] Blood specimen (specimen) BLOOD SPECIMEN / Unknown Venipuncture / Unknown 07/07/2014 10:36 AM CDT 07/07/2014 10:36 AM CDT Panfilo Gu MD CHEMISTRY [address] [address], from Last 3 Months or Most Recently Relevant to Health Maintenance Advance Directives * Full Code (Latest Code Status on File) Date Activated Date Inactivated Comments 03/09/2019 4:55 PM 03/14/2019 8:03 PM * DNR Date Activated Date Inactivated Comments 10/11/2018 1:44 PM 10/12/2018 5:54 PM Question Answer Comments Code Status Discussion: Discussed Care Teams Rehabilitation Aide Relationship Specialty Start Date End Date Pcp, No . PCP - General 07/18/17
--- NOTE | 2024-08-05 12:15 | CRLHL7_ITS ---
For Patients: As a result of the Cures Act, medical imaging exams and procedure reports are released immediately into your electronic medical record. You may view this report before your referring provider. If you have questions, please contact your health care provider. PLEASE SEE DIGITAL DIAGNOSTIC RIGHT MAMMOGRAM PERFORMED SAME DAY CRL:[email or web address] turner/Dictated by: Alpesh Cutler MD @ 08/05/2024 12:54:00 PM (Electronically Signed)
== END 2024-08-05 11:39 | disposition home or self-care (01) ==
LOC: MAMMO 11:39
PROVIDERS: PCP Family Medicine; Visit Provider Family Medicine
DX: N63.10 Unspecified lump in the right breast, unspecified quadrant (principal); R92.8 Other abnormal and inconclusive findings on diagnostic imaging of breast
CPT/HCPCS: 76642; 77065; G0279

== ENCOUNTER 2024-08-26 08:11 | Outpatient (CLI) | payer OTHER, SELFPAY ==
--- OUTSIDE RECORDS SUMMARY | 2024-08-26 08:13 | XMS_ITS | Clinical Summary ---
Author Organization [facility] Address [place], [place] [address] Care Team Providers Care Flat Breakdown Processor Name Role Phone Pcp, No Primary Care [...] in my absence. Controlled substance agreement: 04/15/12 [employer] PROFESSIONAL query on 04/10/16 was acceptable. Last UDS [...] Comments Blood Pressure 154/95 12/15/2020 2:40 PM PICKER TENDER HELPER Pulse 116 12/15/2020 2:40 PM PICKER TENDER HELPER Temperature 37 ??C (98.6 ??F) 12/15/2020 2:40 PM PICKER TENDER HELPER Respiratory Rate 16 12/15/2020 2:40 PM PICKER TENDER HELPER Oxygen Saturation 97% 12/15/2020 2:40 PM PICKER TENDER HELPER Inhaled Oxygen Concentration - - Weight 90.7 kg (200 lb) 12/15/2020 2:40 PM PICKER TENDER HELPER Height 170.2 cm (5' 7) 12/15/2020 2:40 PM PICKER TENDER HELPER Body Mass Index 31.32 12/15/2020 2:40 PM PICKER TENDER HELPER Plan of Treatment Health Maintenance Due Date [...] Procedure Name Priority Date/Time Associated Diagnosis Comments HPV HIGH RISK Routine 05/16/2024 8:45 AM CDT ANTI HIV 1/2 TRINI 03/09/2019 7:57 AM CDT LIPID PANEL W REFLEX MEASURED LDL Routine 07/07/2014 10:36 AM CDT Hyperlipidemia from Last 3 Months or Most Recently Relevant to Health Maintenance Results * HPV HIGH RISK (05/16/2024 8:45 AM CDT) TYPE 16 Negative Negative 05/20/2024 11:06 AM CDT [facility] TYPE 18 Negative Negative 05/20/2024 11:06 AM CDT [facility] OTHER HIGH RISK TYPES Negative Negative 05/20/2024 11:06 AM CDT [facility] Other (Cervical) 05/16/2024 8:45 AM CDT 05/17/2024 10:45 AM CDT Narrative [facility] - 05/20/2024 11:06 AM CDT HPV types 16, 18, 31, 33, 35, 39, 45, 51, 52, 56, 58, 59, 66 and 68 DNA were undetectable or below the pre-set threshold. Methodology: Ruma Kaitlin 4800 HPV Test Milo Maloney MD [facility]OLOGY [facility] [address] [place] [address], * HIV 1&2 TODAY (03/09/2019 7:57 AM CDT) HIV-1/HIV-2 ANTIBODY Non-Reacti ve Non-Reacti ve 03/11/2019 6:48 AM CDT [facility] Comment:HIV-1 p24 and HIV-1/ HIV-2 Ab not detected. Blood BLOOD SPECIMEN / Unknown Venipuncture / Unknown 03/09/2019 7:57 AM CDT 03/09/2019 8:02 AM CDT Savannah Lara MD SEND OUTS [facility] [address] [place] [address], * (ABNORMAL) LIPID PANEL W REFLEX MEASURED LDL (07/07/2014 10:36 AM CDT) CHOLESTEROL,TOTAL 170 100 - 199 mg/dL 07/07/2014 11:19 AM CDT [facility] TRIGLYCERIDES 113 <150 mg/dL 07/07/2014 11:19 AM CDT [facility] HDL CHOLESTEROL 35(L) >40 mg/dL 4 11:19 AM CDT [facility] NON-HDL CHOLESTEROL 135 <145 mg/dl 07/07/2014 11:19 AM CDT [facility] CHOL/HDL RATIO 4.86(H) <4.50 07/07/2014 11:19 AM CDT [facility] LDL CHOLESTEROL 112 <=130 mg/dL 07/07/2014 11:19 AM CDT [facility] PATIENT STATUS NON-FASTI NG 07/07/2014 11:19 AM CDT [facility] Blood specimen (specimen) BLOOD SPECIMEN / Unknown Venipuncture / Unknown 07/07/2014 10:36 AM CDT 07/07/2014 10:36 AM CDT Panfilo Gu MD CHEMISTRY [facility] [address] [place] [address], from Last 3 Months or Most Recently Relevant to Health Maintenance Advance Directives * Full Code (Latest Code Status on File) Date Activated Date Inactivated Comments 03/09/2019 4:55 PM 03/14/2019 8:03 PM * DNR Date Activated Date Inactivated Comments 10/11/2018 1:44 PM 10/12/2018 5:54 PM Question Answer Comments Code Status Discussion: Discussed Care Teams Flat Breakdown Processor Relationship Specialty Start Date End Date Pcp, No . PCP - General 07/18/17
--- NOTE | 2024-08-26 08:15 | CRLHL7_ITS ---
For Patients: As a result of the Century Cures Act, medical imaging exams and procedure reports are released immediately into your electronic medical record. You may view this report before your referring provider. If you have questions, please contact your health care provider. ULTRASOUND-GUIDED RIGHT AXILLARY LYMPH NODE BIOPSY AND POST-BIOPSY DIGITAL MAMMOGRAM FOR BIOPSY MARKER PLACEMENT CLINICAL HISTORY: Enlarged RIGHT axillary lymph node. COMPARISON STUDIES: 08/05/2024. TECHNIQUE: Real-time ultrasound with image documentation was used for targeting the RIGHT axillary lesion. Core biopsy specimens were obtained using an automated gun with an 18-gauge biopsy needle. Post-biopsy CC and ML digital mammograms were obtained to document position of the biopsy marker. CONSENT and TIME OUT: The procedure, risks, and alternatives were explained to the patient and a consent was signed. [place] Protocol was followed including pre-procedure verification that relevant information/documentation was available, reviewed and properly matched to the patient; consent accurate and complete; and equipment and supplies available. Time Out was conducted just prior to starting procedure to verify the four required elements: patient identity, correct side/site marked (if applicable), procedure, relevant images/results properly labeled and displayed (if applicable). PROCEDURE: The patient was positioned supine on the ultrasound table. The breast was prepped with ChloraPrep. 8 cc of 1 percent lidocaine used for local anesthesia. Core samples were obtained. A sterile metal biopsy clip was placed percutaneously to arabella the lesion position within the breast. The specimens were placed in 10% formalin and sent to the pathology department. Pressure was held on the biopsy site until all bleeding subsided. The skin incision was closed with Steri-Strips. An ice pack was positioned over the biopsy site. Post-biopsy instructions were reviewed with the patient, and a written copy was given to her. LATERALITY: RIGHT axilla. LESION: RIGHT axillary lymph node measures 2.6 x 0.6 x 1.6 cm with a cortex measuring 4.2 millimeters. SUSPICION FOR MALIGNANCY: Intermediate. NUMBER OF SAMPLES: 6. BIOPSY CLIP SHAPE: HydroMARK. PROXIMITY OF CLIP TO TARGET: Within the lesion. IMPRESSION: Ultrasound-guided RIGHT axillary lymph node biopsy. When the pathology report is available, an addendum to this report will be made. ACR not applicable Dictated by Alpesh Cutler MD @ 08/26/2024 9:42:36 AM jj/Dictated by: Alpesh Cutler MD @ 08/26/2024 9:42:00 AM (Electronically Signed)
--- NOTE | 2024-08-26 08:15 | CRLHL7_ITS ---
For Patients: As a result of the Century Cures Act, medical imaging exams and procedure reports are released immediately into your electronic medical record. You may view this report before your referring provider. If you have questions, please contact your health care provider. ULTRASOUND-GUIDED BREAST BIOPSY AND POST-BIOPSY DIGITAL MAMMOGRAM FOR BIOPSY MARKER PLACEMENT CLINICAL HISTORY: Indeterminate mass with calcification. COMPARISON STUDIES: 08/05/2024. TECHNIQUE: Real-time ultrasound with image documentation was used for targeting the breast lesion. Core biopsy specimens were obtained using an automated gun with an 18-gauge biopsy needle. Post-biopsy CC and ML digital mammograms were obtained to document position of the biopsy marker. CONSENT and TIME OUT: The procedure, risks, and alternatives were explained to the patient and a consent was signed. [place] Protocol was followed including pre-procedure verification that relevant information/documentation was available, reviewed and properly matched to the patient; consent accurate and complete; and equipment and supplies available. Time Out was conducted just prior to starting procedure to verify the four required elements: patient identity, correct side/site marked (if applicable), procedure, relevant images/results properly labeled and displayed (if applicable). PROCEDURE: The patient was positioned supine on the ultrasound table. The breast was prepped with ChloraPrep. 8 cc of 1 percent lidocaine used for local anesthesia. Core samples were obtained. A sterile metal biopsy clip was placed percutaneously to arabella the lesion position within the breast. The specimens were placed in 10% formalin and sent to the pathology department. Pressure was held on the biopsy site until all bleeding subsided. The skin incision was closed with Steri-Strips. An ice pack was positioned over the biopsy site. Post-biopsy instructions were reviewed with the patient, and a written copy was given to her. LATERALITY: RIGHT breast. LESION: Irregular heterogeneous solid mass with pleomorphic microcalcifications measuring 9 x 6 x 13 millimeters at 11 o`clock 7 cm from the nipple. SUSPICION FOR MALIGNANCY: High. NUMBER OF SAMPLES: 6. BIOPSY CLIP SHAPE: Oval. PROXIMITY OF CLIP TO TARGET: Within the lesion. IMPRESSION: Ultrasound-guided breast biopsy. When the pathology report is available, an addendum to this report will be made. ACR not applicable Dictated by Alpesh Cutler MD @ 08/26/2024 9:28:18 AM jj/Dictated by: Alpesh Cutler MD @ 08/26/2024 9:28:00 AM (Electronically Signed)
--- NOTE | 2024-08-26 09:00 | CRLHL7_ITS ---
For Patients: As a result of the Century Cures Act, medical imaging exams and procedure reports are released immediately into your electronic medical record. You may view this report before your referring provider. If you have questions, please contact your health care provider. PLEASE SEE ULTRASOUND-GUIDED RIGHT BREAST AND RIGHT AXILLARY BIOPSY PERFORMED SAME DAY CRL:yue turner/Dictated by: Alpesh Cutler MD @ 08/26/2024 9:24:00 AM (Electronically Signed)
== END 2024-08-26 08:12 | disposition home or self-care (01) ==
LOC: US 08:12
PROVIDERS: PCP Family Medicine; Visit Provider Family Medicine
DX: N63.10 Unspecified lump in the right breast, unspecified quadrant (principal); R92.8 Other abnormal and inconclusive findings on diagnostic imaging of breast
CPT/HCPCS: 19083; 38505; 76942; 77065; 88305; 88341; 88342; 88360; A4648; A4649

== ENCOUNTER 2024-09-02 14:46 | Outpatient (CLI) | payer OTHER, SELFPAY ==
--- OUTSIDE RECORDS SUMMARY | 2024-09-02 14:49 | XMS_ITS | Clinical Summary ---
Author Organization [facility] [facility] Address [place], [place] [address] Care Team Providers Care Information Technology Account Manager Name Role Phone Pcp, No Primary [...] in my absence. Controlled substance agreement: 04/15/12 STENCIL SPRAYER query on 04/10/16 was acceptable. Last UDS [...] Encounters Date Type Department Care Team Description 08/26/2024 Lab Requisition [facility] [phone] Milo Maloney MD 08/26/2024 Lab Requisition [facility] [phone] Unknown, Doctor from Last 3 Months Immunizations Name Administration [...] Comments Blood Pressure 154/95 12/15/2020 2:40 PM NUCLEAR OPERATIONS SPECIALIST Pulse 116 12/15/2020 2:40 PM NUCLEAR OPERATIONS SPECIALIST Temperature 37 ??C (98.6 ??F) 12/15/2020 2:40 PM NUCLEAR OPERATIONS SPECIALIST Respiratory Rate 16 12/15/2020 2:40 PM NUCLEAR OPERATIONS SPECIALIST Oxygen Saturation 97% 12/15/2020 2:40 PM NUCLEAR OPERATIONS SPECIALIST Inhaled Oxygen Concentration - - Weight 90.7 kg (200 lb) 12/15/2020 2:40 PM NUCLEAR OPERATIONS SPECIALIST Height 170.2 cm (5' 7) 12/15/2020 2:40 PM NUCLEAR OPERATIONS SPECIALIST Body Mass Index 31.32 12/15/2020 2:40 PM NUCLEAR OPERATIONS SPECIALIST Plan of Treatment Health Maintenance Due Date [...] outside of [facility]), 11/23/2010 COVID-19 vaccine series (2023- season) 2024 09/11/2021, 12/20/2020, 11/22/2020 Influenza for [...] Procedure Name Priority Date/Time Associated Diagnosis Comments PATH BREAST CORE BIOPSY Routine 08/26/2024 8:50 AM CDT LAB TRACKING EVENT Routine 08/26/2024 8: 45 AM CDT HPV HIGH RISK Routine 05/16/2024 8:45 AM CDT ANTI HIV 1/2 TRINI 03/09/2019 7:57 AM CDT LIPID PANEL W REFLEX MEASURED LDL Routine 07/07/2014 10:36 AM CDT Hyperlipidemia from Last 3 Months or Most Recently Relevant to Health Maintenance Results * PATH BREAST CORE BIOPSY (08/26/2024 8:50 AM CDT) Case Report Pathology Report ?Case: [id number] ? Authorizing Provider: ??Milo Maloney MD ?Collected: ? 08/26/2024 0850 ? Ordering Location: ? [facility] ?Received: ?08/26/2024 1551 ? Pathologist: ? Rupa Lemus, ? MD ? Specimens: ?? A) - Right Breast Core Ultrasound Biopsy ? B) - Right Axillary Lymph Node ? 08/30/2024 1:58 PM NUCLEAR OPERATIONS SPECIALIST [facility]- [facility] Final Diagnosis A) RIGHT BREAST, 11:00, 7 CM FROM NIPPLE, ULTRASOUND-GUIDED CORE BIOPSY: 1. 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 Negative for invasive malignancy (see part B) B) RIGHT AXILLA, LYMPH NODE, ULTRASOUND-GUIDED CORE BIOPSY: 1. Metastatic breast carcinoma to a lymph node, characterized by: ?? a. Metastatic carcinoma measures at least 2 mm ?? b. Negative for extracapsular extension in this biopsy 2. Breast Ancillary Testing: ?a. Hormone Receptors: ?Estrogen receptor: Positive (91-100%, strong staining by manual morphometry) ?Progesterone receptor: Deferred (no tumor cells present on IHC section) ?b. HER2 by IHC: Negative (1+ by manual morphometry) ?c. Repeat testing of breast ancillary markers recommended at excision due to limited number of tumor cells present for analysis 08/30/2024 1:58 PM [facility]- [facility]AL LABORATORY Comment A) This core biopsy shows atypical ductal hyperplasia (ADH), possibly involving a radial scar. However, this biopsy represents a limited sampling, and thus we cannot exclude the possibility of ductal carcinoma in situ (DCIS). Therefore, excisional biopsy around this site is recommended to more accurately classify this intraductal process. No invasive tumor is identified. Please correlate with imaging to ensure the lesion has been adequately sampled. The finding of atypical ductal hyperplasia (ADH), also known as proliferative fibrocystic change with atypia is associated with increased risk of developing breast carcinoma to 4-5X that of the general population. Cumulative risk of breast cancer approaches 30% at 25 years of follow-up (1% absolute risk per year). High-risk management is warranted. B) The metastatic carcinoma is well differentiated and positive for MARK-3 on immunohistochemical (IHC) staining, supporting a breast primary. No tumor cells are present on the progesterone receptor IHC stain, precluding evaluation. Due to the limited number of metastatic tumor cells present for ancillary testing analysis, repeat testing is recommended on excision. A-B) These are image-guided breast biopsies. The pathologic findings should be correlated with radiologic and clinical findings prior to treatment decisions. Case seen in consultation with Dr. Tracy. 08/30/2024 1:58 PM NUCLEAR OPERATIONS SPECIALIST [facility] Clinical Information A) 13 x 9 x 6 mm, irregular, indistinct, solid, hypo- and hyperechoic right breast mass with associated calcifications at 11:00, 7 cm from the nipple. B) 1.5 cm, lobulated, circumscribed, solid and hypoechoic abnormal right axillary lymph node. 08/30/2024 1:58 PM NUCLEAR OPERATIONS SPECIALIST [facility] Gross Description A) Label: Patient's name and A) R breast Description: 6 Fibrofatty core biopsies Size: 0.8-1.2 cm in length by 0.2 cm in diameter Ink color: Green The specimen is submitted in toto in one cassette. Cold ischemic time: Less than 60 minutes, meets current ASCO/CAP guidelines. ?? The specimen was fixed in formalin for a minimum of 6 hours and not longer than 72 hours. B) Label: Patient's name and B) R axilla Description: 6 Fibrofatty core biopsies Size: 0.6-1.1 cm in length by 0.2 cm in diameter Ink color: Blue The specimen is submitted in toto in one cassette. Cold ischemic time: Less than 60 minutes, meets current ASCO/CAP guidelines. ?? The specimen was fixed in formalin for a minimum of 6 hours and not longer than 72 hours. TLF 08/26/2024 08/30/2024 1:58 PM NUCLEAR OPERATIONS SPECIALIST [facility] Microscopic Description The final diagnosis is based on microscopic examination of appropriate sections of all specimens. A) The presence of green ink is confirmed on tissue sections. Immunohistochemical stains were performed on block A1 with appropriate controls and show the following results, supporting the diagnosis: ?Smooth muscle myosin and p63: Positive (no invasive tumor identified) ?CK5/6: Negative in areas of atypia ?Estrogen receptor: Positive in areas of atypia B) The presence of blue ink is confirmed on tissue sections. MARK-3 immunohistochemical stain was performed on block B1 with appropriate controls and is positive within the metastatic tumor cells, supporting a breast primary. Slide B1-1 was de-stained and re-stained with p63 immunohistochemical stain with appropriate controls and is negative around the metastatic tumor cells. 08/30/2024 1:58 PM [facility] SYNOPTIC REPORTING Breast Biomarker Reporting Template BREAST BIOMARKER REPORTING TEMPLATE - B Protocol posted: 10/07/2023 ?? Test(s) Performed: ? Estrogen Receptor (ER) Status: ?Positive (greater than 10% of cells demonstrate nuclear positivity) ? Percentage of Cells with Nuclear Positivity: ?91-100% ? Average Intensity of Staining: ?Strong ? Test Type: ?Laboratory-develope d test ? Primary Antibody: ?SP1 ? Scoring System: ?Frances ? Proportion Score: ?5 ? Intensity Score: ?3 ? Total Frances Score: ?8 ?? Test(s) Performed: ? HER2 by Immunohistochemistry: ?Negative (Score 1+) ? Test Type: ?Laboratory-develope d test ? Primary Antibody: ?4B5 ?? Cold Ischemia and Fixation Times: ?Meet requirements specified in latest version of the ASCO / CAP Guidelines ?? Testing Performed on Block Number(s): ?B1 METHODS ?? Fixative: ?Formalin ?? Image Analysis: ?Not performed ?? Comment(s): ?ER analysis was performed by manual mophometry for the Frances Scoring System 08/30/2024 1:58 PM [facility] Additional Information Interpreted at [facility] - [address] [address] Immunohistochemistry controls were reviewed and approved by the pathologist during this examination. 08/30/2024 1:58 PM [facility] Other (Right Breast Core Ultrasound Biopsy) 08/26/2024 8:50 AM CDT 08/26/2024 3:51 PM CDT Specimen (specimen) (Right Axillary Lymph Node) 08/26/2024 9:00 AM CDT 08/26/2024 3:51 PM CDT Milo Maloney MD PATHOLOGY/CYTOLOGY Performing Organization Address City/[facility]/ZIP Co de Phone Number [facility] [address] [place] [address], * LAB TRACKING EVENT (08/26/2024 8:45 AM CDT) Other (Other) Client Collect / Unknown 08/26/2024 8:45 AM CDT 08/26/2024 1:22 PM CDT Milo Maloney MD LAB BILL ONLY Performing Organization Address [facility] Co de Phone Number [facility] [address] [place] [address], * HPV HIGH RISK (05/16/2024 8:45 AM CDT) TYPE 16 Negative Negative 05/20/2024 11:06 AM CDT [facility] TYPE 18 Negative Negative 05/20/2024 11:06 AM CDT [facility] OTHER HIGH RISK TYPES Negative Negative 05/20/2024 11:06 AM CDT [facility] Other (Cervical) 05/16/2024 8:45 AM CDT 05/17/2024 10:45 AM CDT Narrative [facility] - 05/20/2024 11:06 AM CDT HPV types 16, 18, 31, 33, 35, 39, 45, 51, 52, 56, 58, 59, 66 and 68 DNA were undetectable or below the pre-set threshold. Methodology: Ruma Kaitlin 4800 HPV Test Milo Maloney MD MICROBIOLOGY Performing Organization Address [facility] Co de Phone Number [facility] [address] [place] [address], * HIV 1&2 TODAY (03/09/2019 7:57 AM CDT) HIV-1/HIV-2 ANTIBODY Non-Reacti ve Non-Reacti ve 03/11/2019 6:48 AM CDT [facility] Comment:HIV-1 p24 and HIV-1/ HIV-2 Ab not detected. Blood BLOOD SPECIMEN / Unknown Venipuncture / Unknown 03/09/2019 7:57 AM CDT 03/09/2019 8:02 AM CDT Savannah Lara MD SEND OUTS [facility] [address] [place] [address], [place] * (ABNORMAL) LIPID PANEL W REFLEX MEASURED LDL (07/07/2014 10:36 AM CDT) CHOLESTEROL,TOTAL 170 100 - 199 mg/dL 07/07/2014 11:19 AM CDT [facility] TRIGLYCERIDES 113 <150 mg/dL 07/07/2014 11:19 AM CDT [facility] HDL CHOLESTEROL 35(L) >40 mg/dL 4 11:19 AM CDT [facility] NON-HDL CHOLESTEROL 135 <145 mg/dl 07/07/2014 11:19 AM CDT [facility] CHOL/HDL RATIO 4.86(H) <4.50 07/07/2014 11:19 AM CDT [facility] LDL CHOLESTEROL 112 <=130 mg/dL 07/07/2014 11:19 AM CDT [facility] PATIENT STATUS NON-FASTI NG 07/07/2014 11:19 AM CDT [facility] Blood specimen (specimen) BLOOD SPECIMEN / Unknown Venipuncture / Unknown 07/07/2014 10:36 AM CDT 07/07/2014 10:36 AM CDT Panfilo Gu MD CHEMISTRY [facility] [address] [place] [address], [place] [phone] from Last 3 Months or Most Recently Relevant to Health Maintenance Advance Directives * Full Code (Latest Code Status on File) Date Activated Date Inactivated Comments 03/09/2019 4:55 PM 03/14/2019 8:03 PM * DNR Date Activated Date Inactivated Comments 10/11/2018 1:44 PM 10/12/2018 5:54 PM Question Answer Comments Code Status Discussion: Discussed Care Teams Information Technology Account Manager Relationship Specialty Start Date End Date Pcp, No . PCP - General 07/18/17
--- NOTE | 2024-09-02 15:15 | CRLHL7_ITS ---
For Patients: As a result of the 21st Century Cures Act, medical imaging exams and procedure reports are released immediately into your electronic medical record. You may view this report before your referring provider. If you have questions, please contact your health care provider. BILATERAL BREAST MRI WITHOUT AND WITH GADOLINIUM CLINICAL HISTORY: Recent biopsy RIGHT breast showed atypical ductal hyperplasia but no invasive cancer. Ultrasound biopsy of RIGHT axillary lymph node though showed positive metastatic carcinoma. INDICATION FOR BREAST MRI: Staging of newly diagnosed cancer and screening of the contralateral breast. COMPARISON STUDIES: BILATERAL mammogram 07/21/2024, RIGHT diagnostic mammogram 08/05/2024 with ultrasound 08/05/2024 and ultrasound-guided biopsy 08/26/2024. CONTRAST: Dotarem 20 mL. TECHNIQUE: The patient was positioned prone using a breast coil. Multiple imaging sequences were obtained using 1-1.5 mm thick slices with no gap. The image sequences include T2-weighted STIR in the axial plane, T1-weighted nonfat-saturated gradient echo in the axial plane, pre- and post-contrast T1-weighted FLASH 3D with fat suppression in the axial plane, and T1-weighted FLASH high resolution 3D with fat suppression in the sagittal plane. Image post-processing was performed on a [employer] workstation. Complex 3D rendering including maximum intensity projections (MIPS) and volumetric renderings were obtained to optimize visualization of the extent of pathology and relationship to the nipple, skin, and chest wall. This aids in determining feasibility of breast conservation surgery. Subtraction, multiplanar reconstruction, mean curve determination, and angiogenesis mapping were also performed. The study was technically adequate. FINDINGS: Amount of Fibroglandular Tissue: Almost entirely fatty . Breast Background Enhancement: Moderate. RIGHT Breast: Area of ADH is visualized at a spiculated area containing this marker clip placed at biopsy. Measurement 2.3 x 1.7 cm. It does not really enhance above background. A second similar appearing area is seen in the medial RIGHT breast which correlates with a possible area of architectural distortion on the mammogram of 07/21/2024. Consider further diagnostic images of the RIGHT medial breast. LEFT Breast: Solid enhancing mass lateral upper location approximately 9-10 o`clock approximately 9 cm from the nipple. Size 1 cm. T2 bright. This could be a small intramammary lymph node. Lymph Nodes: Prominent lymph nodes LEFT axilla. RIGHT axillary nodes appear normal in size. The biopsied node is visualized. IMPRESSIONS AND RECOMMENDATIONS: 1. Area of ADH visualized as a faintly enhancing spiculated area 2.3 x 1.7 cm outer upper RIGHT breast approximately 11 o`clock position. If larger samples needed prior to surgical excision stereotactic core biopsy is recommended. Otherwise, surgical excision is warranted. 2. Recommend spot compression view RIGHT medial breast with ultrasound of possible architectural distortion on mammogram approximately 8 cm from the nipple. There is minimal MRI enhancement at this location. 3. Indeterminate mass LEFT upper outer breast recommend ultrasound with possible biopsy 9 to 10 o`clock position 9 cm from the nipple. Size 1 cm. 4. Ultrasound LEFT axilla. BI-RADS Category 4: Suspicious Dictated by Lala Ryan MD @ 09/05/2024 4:31:01 PM /Dictated by: Lala Ryan MD @ 09/05/2024 4:31:00 PM (Electronically Signed)
[2024-09-02 15:45] LABS: Creatinine* 0.9 mg/dL (0.5-1.5); Estimated Glomerular Filt Rate 74 ml/min
--- NOTE | 2024-09-02 16:45 | CRLHL7_ITS ---
For Patients: As a result of the Century Cures Act, medical imaging exams and procedure reports are released immediately into your electronic medical record. You may view this report before your referring provider. If you have questions, please contact your health care provider. INDICATION: Right breast cancer, upper-outer quadrant. Unspecified disease of pancreas. TECHNIQUE: Volumetric helical scanning of the chest, abdomen and pelvis was performed with 117 cc Isovue 370 contrast material IV. Coronal and sagittal reconstructions were obtained. COMPARISON: Right upper quadrant ultrasound of 10/01/2023 FINDINGS: CHEST: A right breast biopsy clip is demonstrated. No axillary adenopathy is evident. There is no obvious mediastinal hilar lymphadenopathy. No pulmonary nodule is evident. Minor atelectasis is present in posterior right middle lobe. Minor atelectasis or scarring is noted in the right upper lobe and lingula. No acute infiltrate, significant airway abnormality or pleural effusion is demonstrated. The heart is normal in size. A left anterior descending coronary arterial stent is noted. ABDOMEN/PELVIS: The liver is normal in size, shape and attenuation. Postop changes of cholecystectomy are demonstrated. Dilation of the biliary system is demonstrated with the common duct measuring up to 19 mm in diameter, as on the previous ultrasound, apparently due to reservoir effect. No lymphadenopathy is evident. No free fluid is demonstrated. The spleen and pancreas are unremarkable. A nonspecific 2.7 cm left adrenal nodule is noted. The right adrenal is normal. The kidneys are negative except for a subcentimeter inferior left renal parenchymal cyst. The bowel is unremarkable except for sigmoid diverticulosis and a small hiatal hernia. The uterus and left ovary are grossly negative. The right ovary has reportedly been removed. No lytic or blastic bone lesion is identified. IMPRESSION: 1. Right breast biopsy clip. No evidence of metastatic disease in the chest, abdomen or pelvis. 2. Post cholecystectomy with unchanged biliary system dilation, apparently due to reservoir effect. 3. Nonspecific 2.7 cm left adrenal nodule. Comparison with any prior exam recommended. Otherwise, CT utilizing an adrenal adenoma protocol recommended. 4. Small hiatal hernia. 5. Left coronary arterial stent. Please note that all CT scans at this facility use dose modulation, iterative reconstruction, and/or weight-based dosing when appropriate to reduce radiation dose to as low as reasonably achievable. Dictated by Checo Caballero MD @ 09/05/2024 4:43:44 AM (Electronically Signed)
== END 2024-09-02 14:47 | disposition home or self-care (01) ==
LOC: MRI 14:47
PROVIDERS: PCP Family Medicine; Visit Provider Surgery
DX: C50.411 Malignant neoplasm of upper-outer quadrant of right female breast (principal); C77.3 Secondary and unspecified malignant neoplasm of axilla and upper limb lymph nodes; K86.89 Other specified diseases of pancreas; K44.9 Diaphragmatic hernia without obstruction or gangrene; E27.9 Disorder of adrenal gland, unspecified
CPT/HCPCS: 36415; 71260; 74177; 77049; 82565; C8908; C8937; A9575; Q9967

== ENCOUNTER 2024-09-29 10:03 | Outpatient (CLI) | payer OTHER, SELFPAY ==
--- OUTSIDE RECORDS SUMMARY | 2024-09-29 10:06 | XMS_ITS | Clinical Summary ---
Author Organization [facility] Address [place], [place] [address] Care Team Providers Care Manager Report Name Role Phone Malaika Hines MD Primary Care Provider [phone] Abby Baig RN Unavailable Stephanie Wyman MD Unavailable [phone] Allergies Active Allergy Reactions Criticality Noted Date [...] hours if needed. 1 box 05/30/2019 Active metoprolol succinate (TOPROL XL) 50 mg sustained-release tablet Take by mouth. 05/16/2024 Active losartan (COZAAR) 100 mg tablet TAKE 100 MG ORALLY DAILY 08/27/2024 Active atorvastatin (LIPITOR) 20 mg tablet TAKE 20 MG ORALLY EVERY DAY AT BEDTIME 05/16/2024 Active methIMAzole (TAPAZOLE) 5 mg tablet TAKE 1 TABLET BY MOUTH EVERY DAY. INSURANCE ALLOWS ON 30 DAY SUPPLY 09/04/2024 Active hydroCHLOROthiazide 25 mg tablet TAKE 25 MG ORALLY DAILY 08/27/2024 Active buprenorphine-nalox one (SUBOXONE) 8-2 mg sublingual film (for OTP use) Place under the tongue. 01/15/2023 Active Active Problems Problem Noted Date Diagnosed Date Malignant neoplasm of overla pping sites of right breast in female, estrogen receptor positive 09/27/2024 Cancer Staging:Clinical:Stage IB(cT1c, cN1(f), cM0, G1, ER+, AZ+, HER2-) - Signed by Stephanie Wyman MD on 09/27/2024 Abscess of lower lobe of right lung [...] Overview (01/08/2017): Prescriber: Panfilo Gu MD Secondary Dr. Greyson Rizzo, Ok to fill at same amount/dose/frequency in my absence. Controlled substance agreement: 04/15/12 ARCHITECTURAL INSPECTOR query on 04/10/16 was acceptable. Last UDS [...] Encounters Date Type Department Care Team Description 09/28/2024 Telephone [facility] [address] [address] [facility] Scheduled 09/28/2024 Telephone [facility] [address] [place] [address] Andressa Dodson MS, [facility] Results (Genetic test result) 09/27/2024 1:00 PM [facility] Office Visit [facility] [address] [place] [address] Stephanie Wyman MD Consult (Breast Cancer ) 09/27/2024 Travel 09/26/2024 Telephone [facility] [address] [place] [address] Hiedeman, Stephanie J, RN pre visit planning 09/23/2024 Telephone [facility] [address] [place] [address] [facility] Referral (Invasive ductal carcinoma) 09/23/2024 Telephone [facility] [address] [place] [address] Lorin White, KIP Results (Breast biopsy results) 09/21/2024 Telephone [facility] [address] [place] [address] Ana María Cain, RN Results (Pending biopsy results) 09/20/2024 7:26 AM [facility] - 09/20/2024 11:59 PM [facility] Hospital Encounter [facility] [address] [place] [address] Lupe Spivey MD Abnormal MRI, breast 09/20/2024 Orders Only [facility] [address] [place] [address] Lupe Spivey MD Lab 09/20/2024 Travel 09/16/2024 12:30 PM [facility] Telemedicine [facility] [address] [place] [address] Andressa Dodson, MS, [facility] Counseling (Cancer genetic counseling); Telehealth 09/15/2024 Transcribe Orders [facility] [address] [place] [address] Lupe Spivey MD 08/26/2024 Lab Requisition [facility] [phone] Milo Maloney MD 08/26/2024 Lab Requisition [facility] [phone] Unknown, Doctor from Last 3 Months Immunizations Name Administration Dates Next Due Influenza, IIV3 (Age >=3 years) 07/27/2013,08/06 Influenza, IIV4 10/12/2018,07/25/2014 Pneumococcal Poly,23-Valent (Pneumovax) 10/12/20 18 Tdap 11/23/2010 Family History Medical History Relation Name Comments Cancer-breast Mother Cancer-breast Other 1 2nd cousin mat ernal side Cancer-breast Other 2 great maternal aunt Cancer-breast Paternal Aunt Thyroid cancer Sister surgery and r adioactive iodine Graves' disease Son Cancer-colon No Family History Cancer-ovarian No Family History Cancer-pancreatic No Family History Cancer-prostate No Family History Melanoma No Family History Relation Name Status Comments Mother Other 1 Other 2 Alive Paternal Aunt Alive Sister Son Social History Tobacco Use Types Packs/Day Years Used Date Smoking Tobacco: Every Day Cigarettes Last attempted to quit: 10/26/2001 Smokeless Tobacco: Never Tobacco Cessation:Ready to Q uit: Not Asked; Counseling Given: Not Answered Comments:3 cigarettes a day Alcohol Use Standard Drinks/Week Comments Not Currently 0 (1 standard drink = 0.6 oz pur e alcohol) none Sex and Gender Information Value Date Recorded Sex Assigned at Not on file Gender Identity Not on file Sexual Orientation Not on file Obstetrics History Last Filed Vital Signs Vital Sign Reading Time Taken Comments Blood Pressure 141/82 09/27/2024 1:11 PM [facility] Pulse 60 09/27/2024 1:11 PM [facility] Temperature 34.6 C (94.3 F) 09/27/2024 1:11 PM [facility] Respiratory Rate 18 09/27/2024 1:11 PM [facility] Oxygen Saturation 97% 12/15/2020 2:40 PM [facility] SE[facility] Inhaled Oxygen Concentration - - Weight 90.7 kg (200 lb) 12/15/2020 2:40 PM [facility] Height 167.6 cm (5' 6) 09/27/2024 1:11 PM [facility] SE[facility] Body Mass Index 31.32 12/15/2020 2:40 PM [facility] Plan of Treatment Upcoming Encounters Date Type Department Care Team (Latest Contact Info) Description 10/06/2024 7:45 AM [facility] SE[facility] Appointment [place] [address] [address] 10/06/2024 8:00 AM [facility] Appointment [place] [address] [address] 10/06/2024 8:00 AM [facility] Appointment [place] [address] [address] 10/06/2024 8:15 AM [facility] Appointment [facility] [address] [address] 10/06/2024 9:00 AM [facility] [employer] Appointment [facility] [address] [address] 10/06/2024 11:03 AM [facility] Hospital Encounter [facility] [address] [place] [address] Stephanie Wyman MD [address] [place] [address] 10/06/2024 11:03 AM [facility] - 10/06/2024 1:00 PM [facility] Surgery [facility] [address] [place] [address] Stephanie Wyman MD [address] [place] [address] 2 site wire localized / bracketed RIGHT lumpectomy with right targeted axillary node dissection (excision of previously clipped node and sentinel lymph node biopsy) 10/18/2024 10:45 AM [facility] [employer] Office Visit [facility] [address] [place] [address] Stephanie Wyman MD [address] [place] [address] 11/07/2024 10:00 AM [facility] [employer] Office Visit [facility] [address] [address] Gage Liu MD [address] [place] [address] Scheduled Procedures Name Priority Associated Diagnoses Date/Ti me LUMPECTOMY BREAST WITH SENTINEL LYMPH NODE BIOPSY Malignant neoplasm of upper-outer quadrant of right breast in female, estrogen receptor positive (HC) 10/06/2024 11:03 AM [facility] SE[facility] Health Maintenance Due Date Last Done Comments Hepatitis C screening for ag e 18-79 1984 Colonoscopy through age 75 2011 Zoster (shingles) series for age 50+ (1 of 2) 2016 Depression screening for age 12+ 09/10/2017 09/10/20 16, 09/10/2016 BMI (ht and wt on same day) for age 18+ 12/08/2017 12/08/2016, 06/26/2016, 12/27/2015 Lipids for age 45-75 07/07/2019 07/07/2014, 07/27/2013, 11/04/2012, Additional history exists Pneumococcal series for age 6-64 (2 of 2 - PCV) 10/12/2019 10/12/2018 Tetanus booster 03/12/2021 03/12/2011 (Comp leted outside of [facility]), 11/23/2010 Influenza for age 50-64 06/26/2024 10/12/20 18, 07/25/2014, 07/27/2013, Additional history exists Mammogram for age 45-75 09/20/2025 09/20/2024 Pap test for age 21-65 05/16/2027 05/16/2024, 2023 Tdap Completed 11/23/2010 HIV for age 15-65 Completed 03/09/2019 COVID-19 vaccine series Completed 08/09/20 24, 08/06/2023, 09/10/2022, Additional history exists Goals Goal Patient Goal Type Associated Problems Recent Progress Patient-Stated? Author BLOOD PRESSURE - MAINTAINS BP less than 140/90 Blood Pressure Panfilo Gilbert MD Procedures Procedure Name Priority Date/Time Associated Diagnosis Comments XR BIOPSY BREAST NEEDLE W REY W STEREO GUIDE RT [facility] 09/20/2024 10:36 AM [facility] SE[facility] [employer] Abnormal MRI, breast US BIOPSY BREAST NEEDLE W REY W GUIDE LEFT [facility] 09/20/2024 10:35 AM [facility] SEW[facility] HAND Abnormal MRI, breast US AXILLA LEFT BREAST CENTER [facility] 09/20/2024 10:35 AM [facility] [facility] [employer] Abnormal MRI, breast US BREAST BILATERAL LIMITED [facility] 09/20/2024 10:35 AM [facility] SE[facility] HAND Abnormal MRI, breast XR MAMMO SATURNINO UNI DIAG RIGHT [facility]I 09/20/2024 10:32 AM [facility] Abnormal MRI, breast XR MAMMO POST CLIP PLCMT BILAT [facility] 09/20/2024 10:31 AM [facility] SE[facility] HAND Abnormal MRI, breast PATH TISSUE EXAM Today 09/20/2024 9:36 AM [facility] SE[facility] CANCER GENETIC SEND OUT Routine 09/20/2024 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 (HC) PATH BREAST CORE BIOPSY Routine 08/26/2024 8:50 AM CDT LAB TRACKING EVENT Routine 08/26/2024 8: 45 AM CDT HPV HIGH RISK Routine 05/16/2024 8:45 AM CDT ANTI HIV 1/2 TRINI 03/09/2019 7:57 AM CDT LIPID PANEL W REFLEX MEASURED LDL Routine 07/07/2014 10:36 AM CDT Hyperlipidemia from Last 3 Months or Most Recently Relevant to Health Maintenance Results * US BIOPSY BREAST NEEDLE W REY W GUIDE LEFT (09/20/2024 10:35 AM [facility]) Anatomical Region Laterality Modality Breast Left Left Ultrasound, Othe r 09/20/2024 3:16 PM [facility] [employer] Addenda Addendum by Chastity Funes MD on 09/23/2024 10:05 AM [facility] ADDENDUM ADDENDUM ADDENDUM Pathology results of LEFT breast intramammary lymph node 13 cm from the nipple demonstrates fragments of benign lymph node. Results were reviewed with imaging findings and found concordant. Surgical and oncologic management per referring physician. A [facility] nurse will contact the patient with the results. TKP:chay 09/23/2024 Impressions 09/20/2024 3:54 PM [facility] [employer] Ultrasound-guided breast biopsy. When the pathology report is available, an addendum to this report will be made. ACR not applicable Dictated by: Lala Ryan MD @09/20/2024 3:16:55 PM/yue Narrative 09/20/2024 3:54 PM [facility] For Patients: As a result of the 21st Century Cures Act, medical imaging exams and procedure reports are released immediately into your electronic medical record. You may view this report before your referring provider. If you have questions, please contact your health care provider. ULTRASOUND-GUIDED BREAST BIOPSY AND POST-BIOPSY DIGITAL MAMMOGRAM FOR BIOPSY MARKER PLACEMENT, 09/20/2024 CLINICAL HISTORY: Abnormal lymph node LEFT breast. Biopsy-proven metastatic breast cancer to a RIGHT axillary lymph node. COMPARISON STUDIES: Ultrasound 09/20/2024. TECHNIQUE: Real-time ultrasound with image documentation was used for targeting the breast lesion. Core biopsy specimens were obtained using an automated gun with a 14-gauge biopsy needle. Post-biopsy CC and ML digital mammograms were obtained to document position of the biopsy marker. CONSENT and TIME OUT: The procedure, risks, and alternatives were explained to the patient and a consent was signed. [place] Protocol was followed including pre-procedure verification that relevant information/documentation was available, reviewed and properly matched to the patient; consent accurate and complete; and equipment and supplies available. Time Out was conducted just prior to starting procedure to verify the four required elements: patient identity, correct side/site marked (if applicable), procedure, relevant images/results properly labeled and displayed (if applicable). PROCEDURE: The patient was positioned supine on the ultrasound table. The breast was prepped with Betadine or ChloraPrep. 3 cc of 1% lidocaine was injected for superficial anesthesia and 5 cc of 1% lidocaine with epinephrine was injected for deeper anesthesia. Core samples were obtained. A sterile metal biopsy clip was placed percutaneously to rey the lesion position within the breast. The specimens were placed in 10% formalin and sent to the pathology department. Pressure was held on the biopsy site until all bleeding subsided. The skin incision was closed with Steri-Strips. An ice pack was positioned over the biopsy site. Post-biopsy instructions were reviewed with the patient, and a written copy was given to her. LATERALITY: LEFT. LESION: 6 mm intramammary lymph node 13 cm from the nipple. SUSPICION FOR MALIGNANCY: Intermediate. NUMBER OF SAMPLES: 4. BIOPSY CLIP SHAPE: X. PROXIMITY OF CLIP TO TARGET: On target. Lupe Spivey MD US * US AXILLA LEFT BREAST (09/20/2024 10:35 AM [facility]MENT SEWER HAND) Anatomical Region Laterality Modality Left Ultrasound, Othe r Narrative 09/20/2024 3:54 PM [facility] SE[facility] HAND For Patients: As a result of the Cures Act, medical imaging exams and procedure reports are released immediately into your electronic medical record. You may view this report before your referring provider. If you have questions, please contact your health care provider. LEFT AXILLARY ULTRASOUND, 09/20/2024 PLEASE SEE [id number] FOR DIGITAL RIGHT MAMMOGRAM SAME DAY. Lpue Spivey MD US * US BREAST BILATERAL LIMITED (09/20/2024 10:35 AM [facility]MENT SEWER HAND) Anatomical Region Laterality Modality BREASTS, Breast Left, Breast Right Bilateral Ultrasound, Other Narrative 09/20/2024 3:53 PM [facility] SE[facility] HAND For Patients: As a result of the Cures Act, medical imaging exams and procedure reports are released immediately into your electronic medical record. You may view this report before your referring provider. If you have questions, please contact your health care provider. BILATERAL BREAST ULTRASOUND, 09/20/2024 PLEASE SEE [id number] FOR DIGITAL RIGHT MAMMOGRAM SAME DAY. Lupe Spivey MD US * XR MAMMO SATURNINO UNI DIAG RIGHT (09/20/2024 10:32 AM [facility] SE[facility]) Anatomical Region Laterality Modality BREASTS, Breast Right Mammograph y 09/20/2024 2:29 PM [facility]MENT SEW[facility] HAND Impressions 09/20/2024 3:53 PM [facility] 1. Medial asymmetry simple cyst RIGHT breast. No other suspicious findings other than the known area of architectural distortion within the RIGHT breast 2. Normal LEFT axillary lymph nodes. 3. Indeterminate LEFT intramammary lymph node. RECOMMENDATIONS: 1. Stereotactic biopsy for larger samples recommended of architectural distortion with microcalcifications due to the presence of metastasis to a RIGHT axillary lymph node. 2. Ultrasound-guided biopsy LEFT intramammary lymph node is recommended. Results and recommendations were discussed with the patient at the time of the exam. BI-RADS Category 4: Suspicious Dictated by: Lala Ryan MD @09/20/2024 2:29:27 PM/yue PATIENTS: You will also receive a letter with your examination results in an easy to read format. If you have questions about your results, please contact your referring provider. Narrative 09/20/2024 3:53 PM [facility] For Patients: As a result of the Century Cures Act, medical imaging exams and procedure reports are released immediately into your electronic medical record. You may view this report before your referring provider. If you have questions, please contact your health care provider. DIGITAL DIAGNOSTIC RIGHT MAMMOGRAM USING TOMOSYNTHESIS, 09/20/2024 BILATERAL BREAST ULTRASOUND, 09/20/2024 LEFT AXILLARY ULTRASOUND, 09/20/2024 CLINICAL HISTORY: New diagnosis of ADH after biopsy of architectural distortion with microcalcifications under ultrasound guidance lateral RIGHT breast. Sampling of a RIGHT axillary lymph node showed metastatic carcinoma. Here for asymmetry workup detected in the medial RIGHT breast with ultrasound LEFT axilla for prominent axillary nodes seen on MR .LEFT breast ultrasound of intramammary lymph node after staging MRI. Also stereotactic core biopsy site of ADH was recommended. COMPARISON: Breast MRI 09/02/2024, screening mammogram 07/21/2024, RIGHT breast diagnostic mammogram 08/05/2024, ultrasound-guided biopsy 08 26 2024 TECHNIQUE: Digital RIGHT mammogram in lateral and spot CC projections with tomosynthesis. Real-time ultrasound imaging of the BILATERAL breasts and LEFT axilla with imaging documentation. Scanning was performed by both the technologist and the radiologist. BREAST COMPOSITION: There are scattered areas of fibroglandular density. FINDINGS: RIGHT Breast Diagnostic Mammogram: A persistent asymmetry medial RIGHT breast on diagnostic views. The biopsied area of architectural distortion with microcalcifications and a Q-shaped marker clip is identified in the upper outer RIGHT breast. Ultrasound targeted to the medial RIGHT breast shows a cyst which explains the mammographic finding. Measurement 0.7 x 0.3 x 0.4 cm. there is a simple cyst 6 o'clock 2 cm from the nipple as well.No further suspicious findings on ultrasound . Ultrasound LEFT breast shows an intramammary lymph node with effaced hilum. Measurement is 0.6 x 0.5 x 0.4 cm. This is indeterminate. Ultrasound LEFT axilla: normal lymph nodes visualized. No enlarged or suspicious lymph nodes identified. Lupe Spivey MD MAMMO * XR MAMMO POST CLIP PLCMT BILAT (09/20/2024 10:31 AM [facility]MENT SE[facility]) Anatomical Region Laterality Modality Breast Right, Breast Left N/A Mammog mayra Narrative 09/20/2024 3:54 PM [facility] For Patients: As a result of the Century Cures Act, medical imaging exams and procedure reports are released immediately into your electronic medical record. You may view this report before your referring provider. If you have questions, please contact your health care provider. BILATERAL POST-BIOPSY MAMMOGRAM CLIP PLACEMENT, 09/20/2024 PLEASE SEE [id number] AND [id number] FOR REPORT OF LEFT AND RIGHT BREAST BIOPSY SAME DAY. Lupe Spivey MD MAMMO * PATH TISSUE EXAM (09/20/2024 9:36 AM GARMENT SEWER HAND) Case Report Pathology Report Case: [id number] Authorizing Provider: Lala Ryan MD Collected: 09/20/2024 1007 Ordering Location: [facility] Cancer Received: 09/20/2024 1222 [facility] Pathologist: Rupa Lemus MD Specimens: A) - Right Breast Core Stereotactic Biopsy B) - Left Breast Core Ultrasound Biopsy 09/23/2024 4:46 PM [facility]MENT SE[facility] Amendment 09/23/2024 - Amendment issued to incorporate ancillary studies. 09/23/2024 4:46 PM [facility] SE[facility] Final Diagnosis A) RIGHT BREAST, 11:00, 5 CM FROM NIPPLE, STEREOTACTIC-GUIDED CORE BIOPSY: 1. Invasive ductal carcinoma, measuring up to 2 mm in this sampling and arising within a complex sclerosing lesion (see comment) a. Chelita grade: I of III; Chelita score: 3 of 9 b. Angio-lymphatic invasion: Not identified c. Associated DCIS: Absent d. Associated LCIS: Present, classic type e. Associated ADH: Present 2. Calcifications present within ADH, LCIS and benign breast tissue 2. Breast Ancillary Testing: a. Hormone Receptors: Estrogen receptor: Positive (91-100%, strong staining) Progesterone receptor: Negative b. HER2 by IHC: Negative (1+ by manual morphometry) c. Insufficient tumor to perform Ki-67 B) LEFT BREAST, INTRAMAMMARY LYMPH NODE, 13 CM FROM NIPPLE, ULTRASOUND-GUIDED CORE BIOPSY: 1. Fragments of benign lymph node 2. Negative for metastatic carcinoma in this sampling 09/23/2024 4:46 PM [facility] Amendment electronically signed by Herlinda Tracy MD on 09/23/2024 at 4:46 PM Comment A) The tumor is morphologically similar to the metastatic tumor in the patient's recent right axillary lymph node biopsy ([id number]). A-B) These are image-guided breast biopsies. The pathologic findings should be correlated with radiologic and clinical findings prior to treatment decisions. Case seen in consultation with Dr. Tracy. 09/23/2024 4:46 PM [facility] Clinical Information Recently diagnosed right breast ADH at 11:00, 7 cm from nipple position and metastatic breast carcinoma to a right axillary lymph node ([id number]). A) LATERALITY: RIGHT. LESION: 2 cm architectural distortion with microcalcifications 11 o'clock 5 cm from the nipple. SPECIMEN RADIOGRAPH: Positive for microcalcification. BIOPSY CLIP SHAPE: HydroMARK butterfly. PROXIMITY OF CLIP TO TARGET: On target. B) LATERALITY: LEFT. LESION: 6 mm intramammary lymph node 13 cm from the nipple. BIOPSY CLIP SHAPE: X. PROXIMITY OF CLIP TO TARGET: On target. 09/23/2024 4:46 PM [facility] Gross Description A) Label: Patient's name and RIGHT SITE A Description: Fibrofatty core biopsies Tissue present in wells: A-H Calcifications present in wells: A-G Size: 3 x 1.8 x 0.5 cm (aggregate) Ink color: Black The specimen is submitted in toto: 1. Tissue with calcifications from wells A-C 2. Tissue with calcifications from wells D-G 3. Remaining tissue Cold ischemic time: Less than 60 minutes, meets current ASCO/CAP guidelines. The specimen was fixed in formalin for a minimum of 6 hours and not longer than 72 hours. B) Label: Patient's name and LEFT SITE B Description: 7 Fibrofatty core biopsies Size: 0.3-0.6 cm in length by 0.2 cm in diameter Ink color: Blue The specimen is submitted in toto in one cassette. Cold ischemic time: Less than 60 minutes, meets current ASCO/CAP guidelines. The specimen was fixed in formalin for a minimum of 6 hours and not longer than 72 hours. [facility] 09/20/2024 09/23/2024 4:46 PM [facility] Microscopic Description The final diagnosis is based on microscopic examination of appropriate sections of all specimens. A) The presence of black ink is confirmed on tissue sections. The specimen radiograph is reviewed by the pathologist as part of the evaluation of this case, to confirm that the calcifications seen on the specimen radiograph correlate (in size and number) with the microscopic findings, and to determine whether or not additional levels are necessary. Immunohistochemical stains were performed on block A1 and A2 with appropriate controls and show the following results, supporting the diagnosis: Smooth muscle myosin and p63 (A1): Positive (no invasive tumor identified) Smooth muscle myosin and p63 (A2): Negative around invasive tumor cells B) The presence of blue ink is confirmed on tissue sections. 09/23/2024 4:46 PM [facility] SYNOPTIC REPORTING Breast Biomarker Reporting Template BREAST BIOMARKER REPORTING TEMPLATE - All Specimens Protocol posted: 10/07/2023 Test(s) Performed: Estrogen Receptor (ER) Status: Positive (greater than 10% of cells demonstrate nuclear positivity) Percentage of Cells with Nuclear Positivity: 91-100% Average Intensity of Staining: Strong Test Type: Laboratory-developed test Primary Antibody: SP1 Scoring System: Frances Proportion Score: 5 Intensity Score: 3 Total Frances Score: 8 Test(s) Performed: Progesterone Receptor (PgR) Status: Negative (less than 1%) : Internal control cells present and stain as expected Test Type: Laboratory-developed test Primary Antibody: 16 Scoring System: Frances Proportion Score: 0 Intensity Score: 0 Total Frances Score: 0 Test(s) Performed: HER2 by Immunohistochemistry: Negative (Score 1+) Test Type: Laboratory-developed test Primary Antibody: 4B5 Cold Ischemia and Fixation Times: Meet requirements specified in latest version of the ASCO / CAP Guidelines METHODS Fixative: Formalin Image Analysis: Not performed Comment(s): ER and AZ analysis was performed by manual mophometry for the Frances Scoring System 09/23/2024 4:46 PM [facility] Additional Information Interpreted at [facility] [facility] - [address] [facility] [address] [address] Immunohistochemistry controls were reviewed and approved by the pathologist during this examination. 09/23/2024 4:46 PM GARMENT SEWER HAND [facility] Other (Right Breast Core Stereotactic Biopsy) 09/20/2024 10:07 AM GARMENT SEWER HAND 09/20/2024 12:22 PM GARMENT SEWER HAND Specimen (specimen) (Left Breast Core Ultrasound Biopsy) 09/20/2024 9:36 AM GARMENT SEWER HAND 09/20/2024 12:22 PM GARMENT SEWER HAND Lala Ryan MD PATHOLOGY/CYTOLOG Y [facility] [address] [place] [address], * CANCER GENETIC SEND OUT (09/20/2024) Blood BLOOD SPECIMEN / Unknown 09/20/2024 Lupe Spivey MD SEND OUTS * PATH BREAST CORE BIOPSY (08/26/2024 8:50 AM CDT) Case Report Pathology Report Case: [id number] Authorizing Provider: Milo Maloney MD Collected: 08/26/2024 0850 Ordering Location: [facility] Received: 08/26/2024 1551 Pathologist: Rupa Lemus MD Specimens: A) - Right Breast Core Ultrasound Biopsy B) - Right Axillary Lymph Node 08/30/2024 1:58 PM G[facility]MENT SE[employer] HAND [facility] Final Diagnosis A) RIGHT BREAST, 11:00, 7 CM FROM NIPPLE, ULTRASOUND-GUIDED CORE BIOPSY: 1. 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 Negative for invasive malignancy (see part B) B) RIGHT AXILLA, LYMPH NODE, ULTRASOUND-GUIDED CORE BIOPSY: 1. Metastatic breast carcinoma to a lymph node, characterized by: a. Metastatic carcinoma measures at least 2 mm b. Negative for extracapsular extension in this biopsy 2. Breast Ancillary Testing: a. Hormone Receptors: Estrogen receptor: Positive (91-100%, strong staining by manual morphometry) Progesterone receptor: Deferred (no tumor cells present on IHC section) b. HER2 by IHC: Negative (1+ by manual morphometry) c. Repeat testing of breast ancillary markers recommended at excision due to limited number of tumor cells present for analysis 08/30/2024 1:58 PM GARMENT SEWER HAND [facility] Comment A) This core biopsy [...] consultation with Dr. Tracy. 08/30/2024 1:58 PM [facility] Clinical Information A) 13 x 9 x 6 mm, irregular, indistinct, solid, hypo- and hyperechoic right breast mass with associated calcifications at 11:00, 7 cm from the nipple. B) 1.5 cm, lobulated, circumscribed, solid and hypoechoic abnormal right axillary lymph node. 08/30/2024 1:58 PM GARMENT SEWER HAND [facility] Gross Description A) Label: Patient's name and A) R breast Description: 6 Fibrofatty core biopsies Size: 0.8-1.2 cm in length by 0.2 cm in diameter Ink color: Green The specimen is submitted in toto in one cassette. Cold ischemic time: Less than 60 minutes, meets current ASCO/CAP guidelines. The specimen was fixed in formalin for [...] than 60 minutes, meets current ASCO/CAP guidelines. The specimen was fixed in formalin for a minimum of 6 hours and not longer than 72 hours. TLF 08/26/2024 08/30/2024 1:58 PM GARMENT SEWER HAND [facility] Microscopic Description The final diagnosis is based on microscopic examination of appropriate sections of all specimens. A) The presence of green ink is confirmed on tissue sections. Immunohistochemical stains were performed on block A1 with appropriate controls and show the following results, supporting the diagnosis: Smooth muscle myosin and p63: Positive (no invasive tumor identified) CK5/6: Negative in areas of atypia Estrogen receptor: Positive in areas of atypia B) [...] the metastatic tumor cells. 08/30/2024 1:58 PM [facility] SYNOPTIC REPORTING Breast Biomarker Reporting Template BREAST BIOMARKER REPORTING TEMPLATE - B Protocol posted: 10/07/2023 Test(s) Performed: Estrogen Receptor (ER) Status: Positive (greater than 10% of cells demonstrate nuclear positivity) Percentage of Cells with Nuclear Positivity: 91-100% Average Intensity of Staining: Strong Test Type: Laboratory-developed test Primary Antibody: SP1 Scoring System: Frances Proportion Score: 5 Intensity Score: 3 Total Frances Score: 8 Test(s) Performed: HER2 by Immunohistochemistry: Negative (Score 1+) Test Type: Laboratory-developed test Primary Antibody: 4B5 Cold Ischemia and Fixation Times: Meet requirements specified in latest version of the ASCO / CAP Guidelines Testing Performed on Block Number(s): B1 METHODS Fixative: Formalin Image Analysis: Not performed Comment(s): ER analysis was performed by manual mophometry for the Frances Scoring System 08/30/2024 1:58 PM GARMENT SEWER HAND [facility] Additional Information Interpreted at [facility] - [address] [place] [address] [id number] Immunohistochemistry controls were reviewed and approved by the pathologist during this examination. 08/30/2024 1:58 PM GARMENT SEWER HAND [facility] Other (Right Breast Core Ultrasound Biopsy) 08/26/2024 8:50 AM CDT 08/26/2024 3:51 PM CDT Specimen (specimen) (Right Axillary Lymph Node) 08/26/2024 9:00 AM CDT 08/26/2024 3:51 PM CDT Milo Maloney MD PATHOLOGY/CYTOLOGY Performing Organization Address City/[facility] Co de Phone Number [facility] [address] [place] [address], [place] * LAB TRACKING EVENT (08/26/2024 8:45 AM CDT) Other (Other) Client Collect / Unknown 08/26/2024 8:45 AM CDT 08/26/2024 1:22 PM CDT Milo Maloney MD LAB BILL ONLY Performing Organization Address City/[facility]/ZIP Co de Phone Number [facility] [address] [place] [id number], [place] * HPV HIGH RISK (05/16/2024 8:45 AM CDT) TYPE 16 Negative Negative 05/20/2024 11:06 AM CDT [facility] TYPE 18 Negative Negative 05/20/2024 11:06 AM CDT [facility] OTHER HIGH RISK TYPES Negative Negative 05/20/2024 11:06 AM CDT [facility] Other (Cervical) 05/16/2024 8:45 AM CDT 05/17/2024 10:45 AM CDT Narrative [facility] - 05/20/2024 11:06 AM CDT HPV types 16, 18, 31, 33, 35, 39, 45, 51, 52, 56, 58, 59, 66 and 68 DNA were undetectable or below the pre-set threshold. Methodology: Ruma Kaitlin 4800 HPV Test Mlio Maloney MD MICROBIOLOGY [facility] [address] [place] [address], * HIV 1&2 TODAY (03/09/2019 7:57 AM CDT) HIV-1/HIV-2 ANTIBODY Non-Reacti ve Non-Reacti ve 03/11/2019 6:48 AM CDT [facility] Comment:HIV-1 p24 and HIV-1/ HIV-2 Ab not detected. Blood BLOOD SPECIMEN / Unknown Venipuncture / Unknown 03/09/2019 7:57 AM CDT 03/09/2019 8:02 AM CDT Savannah Lara MD SEND OUTS Performing Organization Address City/[facility]/ZIP Co de Phone Number [facility] [address] [place] [address], * (ABNORMAL) LIPID PANEL W REFLEX MEASURED LDL (07/07/2014 10:36 AM CDT) CHOLESTEROL,TOTAL 170 100 - 199 mg/dL 07/07/2014 11:19 AM CDT [facility] TRIGLYCERIDES 113 <150 mg/dL 07/07/2014 11:19 AM CDT [facility] HDL CHOLESTEROL 35(L) >40 mg/dL 4 11:19 AM CDT [facility] NON-HDL CHOLESTEROL 135 <145 mg/dl 07/07/2014 11:19 AM CDT [facility] CHOL/HDL RATIO 4.86(H) <4.50 07/07/2014 11:19 AM CDT [facility] LDL CHOLESTEROL 112 <=130 mg/dL 07/07/2014 11:19 AM CDT [facility] PATIENT STATUS NON-FASTI NG 07/07/2014 11:19 AM CDT [facility] Blood specimen (specimen) BLOOD SPECIMEN / Unknown Venipuncture / Unknown 07/07/2014 10:36 AM CDT 07/07/2014 10:36 AM CDT Panfilo Gu MD CHEMISTRY [facility] [address] [place] [address], from Last 3 Months or Most Recently Relevant to Health Maintenance Advance Directives * Full Code (Latest Code Status on File) Date Activated Date Inactivated Comments 03/09/2019 4:55 PM 03/14/2019 8:03 PM * DNR Date Activated Date Inactivated Comments 10/11/2018 1:44 PM 10/12/2018 5:54 PM Question Answer Comments Code Status Discussion: Discussed Care Teams Manager Report Relationship Specialty Start Date End Date Malaika Hines MD [address] [place] [address] PCP - General Gastroenterology 09/16/24 Abby Baig, RN [address] [place] [address] Nurse Navigator - Oncology Registered Nurse 09/23/24 Stephanie Wyman MD [address] [place] [address] Surgery - General 09/23/24
== END 2024-09-29 10:04 | disposition home or self-care (01) ==
LOC: NFLDREF 10:05
PROVIDERS: PCP Family Medicine; Visit Provider Family Medicine
DX: Z01.818 Encounter for other preprocedural examination (principal)
CPT/HCPCS: 80048

== ENCOUNTER 2025-01-16 15:43 | Outpatient (CLI) | payer OTHER, SELFPAY ==
[2025-01-16 17:07] LABS: Alkaline Phosphatase* 100 U/L (40-150)
[2025-01-16 18:01] LABS: Free T4 Free Thyroxine* 0.88 ng/dL (0.70-1.85)
[2025-01-16 18:15] LABS: Thyroid Stimulating Hormone* 0.231 uIU/mL (0.270-4.20)
[2025-01-18 03:57] LABS: Free T3 2.9 pg/mL (2.5-4.3)
== END 2025-01-16 15:44 | disposition home or self-care (01) ==
LOC: LAB 15:45
PROVIDERS: PCP Family Medicine; Visit Provider Internal Medicine Endocrinology, Diabetes & Metabolism
DX: E05.00 Thyrotoxicosis with diffuse goiter without thyrotoxic crisis or storm (principal); E06.3 Autoimmune thyroiditis; E05.90 Thyrotoxicosis, unspecified without thyrotoxic crisis or storm
CPT/HCPCS: 36415; 84075; 84439; 84443; 84481

== ENCOUNTER 2025-05-08 09:53 | Outpatient (CLI) | payer OTHER, SELFPAY ==
[2025-05-08 10:35] LABS: Alkaline Phosphatase* 76 U/L (40-150)
[2025-05-08 11:30] LABS: Free T4 Free Thyroxine* 1.12 ng/dL (0.70-1.85)
== END 2025-05-08 09:54 | disposition home or self-care (01) ==
PROVIDERS: Internal Medicine Endocrinology, Diabetes & Metabolism; PCP Family Medicine; Visit Provider Internal Medicine Cardiovascular Disease
DX: E05.90 Thyrotoxicosis, unspecified without thyrotoxic crisis or storm (principal)
CPT/HCPCS: 36415; 84075; 84439; 84443; 84480

== ENCOUNTER 2025-05-15 08:05 | Outpatient (CLI) | payer OTHER, SELFPAY | END 2025-05-15 08:06 | disposition home or self-care (01) | LOC: NFLDREF 17:22 | PROVIDERS: PCP Family Medicine; Referring Provider Family Medicine; Visit Provider Family Medicine | DX: E78.5 Hyperlipidemia, unspecified (principal); I10 Essential (primary) hypertension | CPT/HCPCS: 80053; 80061 ==